=== PATIENT | female | born 1940 | race Two or more races ===

== ENCOUNTER 2017-01-11 09:50 | Inpatient (IN) | payer MEDICARE, BC ==
[~2017-01-11] VITALS: Ht 152.4 cm; Wt 83.9 kg
[~2017-01-11 09:50] MED LIST: AMLO1TAB39 PO; DENO60DI SQ; LORA-259 PO
[2017-01-11] MEDS ORDERED: ONDANSETRON 4 MG/2 ML VIAL IV ONE ×2 (10:00→13:45)
[2017-01-11] MEDS ORDERED: DOCU100C36 PO (10:21)
[2017-01-11] MEDS ORDERED: ZOLP5TAB2 PO (10:21)
[2017-01-11] MEDS ORDERED: LOSA100T15 PO (10:21)
[2017-01-11] MEDS ORDERED: ESCI20TA37 PO (10:21)
[2017-01-11] MEDS ORDERED: TEMA30CA PO (10:21)
[2017-01-11] MEDS ORDERED: SIMV10TA6 PO (10:21)
[2017-01-11] MEDS ORDERED: AMLO10TA2 PO (10:21)
[2017-01-11] MEDS ORDERED: ALLO300T72 PO (10:21)
[2017-01-11] MEDS ORDERED: PRAM0.122 PO (10:21)
[2017-01-11] MEDS ORDERED: [UNRECOGNIZED DRUG - CODE] (10:21)
[2017-01-11] MEDS ORDERED: PANT40TA4 PO (10:21)
[2017-01-11] MEDS ORDERED: IV NORMAL SALINE 1000 ML BAG IV ONE (10:45)
[2017-01-11 11:18] LABS: BASOPHILS % (AUTO) 0.5 % (0.0-2.0); EOSINOPHILS % (AUTO) 0.2 % (0.0-7.0); HEMATOCRIT 27.5 % (37-47); LYMPHOCYTES # (AUTO) 0.1 K/UL (0.8-4.8); LYMPHOCYTES % (AUTO) 3.7 % (20.5-51.5); MEAN CORPUSCULAR HEMOGLOBIN 30.3 UUG (27.0-31.0); MEAN CORPUSCULAR HGB CONC 33 g/dL (32.0-37.0); MEAN CORPUSCULAR VOLUME 92.9 FL (81.0-99.0); MONOCYTES % (AUTO) 0.5 % (0.0-11.0); NEUTROPHILS # (AUTO) 3.4 K/UL (1.8-8.9); NEUTROPHILS % (AUTO) 95.1 % (38.5-71.5); PLATELET COUNT (AUTO) 272 K/UL (150-450); RED BLOOD CELL COUNT(AUTO) 2.96 MIL/UL (4.2-5.4); WHITE BLOOD COUNT (AUTO) 3.5 K/UL (4.0-11.2)
[2017-01-11 11:25] LABS: CARBON DIOXIDE 31 mmol/L (21-32); CHLORIDE 100 mmol/L (98-107); GLUCOSE 102 mg/dL (74-106); POTASSIUM 3.4 mmol/L (3.5-5.1); UREA NITROGEN, BLOOD 16 mg/dL (7-18)
[2017-01-11 11:30] LABS: ALANINE AMINOTRANSFERASE 43 U/L (14-59); ALKALINE PHOSPHATASE 58 U/L (50-136); ASPARTATE AMINOTRANSFERASE 38 U/L (15-37); BILIRUBIN,DIRECT 0.2 mg/dL (0.0-0.2); BILIRUBIN,TOTAL 0.7 mg/dL (0.2-1.0); LIPASE 189 U/L (73-393); TOTAL PROTEIN, SERUM 5.8 g/dL (6.4-8.2)
[2017-01-11 11:43] LABS: *BILIRUBIN,URIN NEGATIVE (NEGATIVE); *BLOOD, URINE Trace-intact (NEGATIVE); *CLARITY,URINE SLIGHTLY CLOUDY (CLEAR); *COLOR,URINE YELLOW (YELLOW); *KETONES,URINE NEGATIVE (NEGATIVE); *PROTEIN,URINE 1+ (NEGATIVE); LEUKOCYTE ESTERASE ,URINE NEGATIVE (NEGATIVE); NITRITE, URINE NEGATIVE (NEGATIVE); PH,URINE 6.5 (5.0-8.0); UGLUCOSE NEGATIVE (NEGATIVE)
[2017-01-11 11:43] LABS: BAND % (MANUAL) 12 % (0-10); LYMPHOCYTES % (MANUAL) 4 % (20-40); METAMYELOCYTES % 1 % (0-1); MONOCYTES % (MANUAL) 1 % (2-10); NEUTROPHILS % (MANUAL) 82 % (42-75)
[2017-01-11 11:59] LABS: BACTERIA,URINE NONE SEEN /HPF (NONE SEEN); SQUAMOUS EPITHELIAL CELL,UR FEW /HPF (NONE SEEN); WBC,URINE 0-3 /HPF (0-3)
[2017-01-11] MEDS ORDERED: IV NORMAL SALINE 500 ML BAG IV ONE (13:45)
[2017-01-11] MEDS ORDERED: MORPHINE SULFATE 2 MG/1 ML DISP.SYRIN IV ONE (13:45)
--- NOTE | 2017-01-11 14:20 | NUR ---
Patient is resting comfortably in bed with eyes closed. PATIENT IS PAIN FREE AT THIS TIME.
--- NOTE | 2017-01-11 15:40 | NUR ---
Patient is now waiting for the admission papers, no acute change in condition seen.
--- NOTE | 2017-01-11 16:06 | NUR ---
Still waiting for admission papers from ER registration staff@this time. Patient's son is now at bedside.
[2017-01-11 16:30] VITALS: BP 124/60
--- NOTE | 2017-01-11 16:45 | NUR ---
RECEIVED FOR ADMISSION 76 YEARS OLD FEMALE FROM ED WITH DX OF CHEMO INDUCED VOMITING AND LEUKEMIA.PLACED INTO BED FIXED AND MADE COMFORTABLE PATIENT IS ALERT AND ORIENTED ASSISTED WITH THE ADMISSION PROCESS EVEN THOUGH SHE GOT IRRITATED A FEW TIMES STATED TI STOP ASKING HER ALL THESE QUESTIONS.TELEMETRY PLACED ORDERED ORIENTED TO ROOM AND FACILITY PROTOCOL.
--- NOTE | 2017-01-11 17:15 | NUR ---
TEMP IS 100.6 AND PATIENT STATED HAS PAIN AT THE BACK OF HER NECK SO I PAGED DR NUÑEZ AND LEFT A MESSAGE WITH MELANIE AND SHE STATED THAT DR NOLAN WILL BE PAGED.
--- NOTE | 2017-01-11 17:15 | NUR ---
DR NOLAN RETURNED CALL WITH NEW ORDERS AND NOTED
[2017-01-11] MEDS ORDERED: MORPHINE SULFATE 2 MG/1 ML DISP.SYRIN IV PRN (17:30)
[2017-01-11] MEDS ORDERED: LEVOFLOXACIN 500 MG/D5W 500 MG in PREMIXED 1 EACH IV ONE (17:45)
[2017-01-11] MEDS: ACETAMINOPHEN 325 MG TABLET PO PRN (17:53)
[2017-01-11] MEDS: ONDANSETRON 4 MG/2 ML VIAL IV PRN (17:53)
[2017-01-11] MEDS ORDERED: LEVOFLOXACIN 500 MG/D5W 500 MG in PREMIXED 1 EACH IV SCH (18:00)
[2017-01-11] MEDS ORDERED: LORAZEPAM 1 MG TABLET PO PRN (19:30)
--- NOTE | 2017-01-11 19:30 | NUR ---
SLEEPING ON BED AT THIS TIME. NO S/SX OF ACUTE DISTRESS NOTED. SAFETY INITIATED. CALL LIGHT WITHIN REACH. WILL CONTINUE TO MONITOR
[2017-01-11 20:00] VITALS: BP 124/67
--- NOTE | 2017-01-11 20:22 | NUR ---
TELE DC'Vianca BY DR. RENE
--- NOTE | 2017-01-11 20:30 | NUR ---
PATIENT NOW AWAKE. NO COMPLAINTS OF PAIN AT THIS TIME. STILL WITH COMPLAINTS OF NAUSEA, OFFERED ICE CHIPS, ALSO REQUESTED FOR ISABELLEO. WILL CONTINUE TO MONITOR
[2017-01-11] MEDS ORDERED: PRAMIPEXOLE DI HCL 0.125 MG PO SCH (21:00)
[2017-01-11] MEDS ORDERED: ZOLPIDEM 5 MG TABLET PO SCH (21:00)
[2017-01-11] MEDS: SIMVASTATIN 10 MG TABLET PO SCH (21:32)
[2017-01-11] MEDS: TEMAZEPAM 30 MG CAPSULE PO SCH (21:33)
[2017-01-11] MEDS: PRAMIPEXOLE 0.25 MG TABLET PO SCH (21:58)
[2017-01-11] MEDS ORDERED: PRAMIPEXOLE 0.25 MG TABLET ONE (22:08)
[2017-01-12 04:30] VITALS: BP 128/65
[2017-01-12] MEDS: ACETAMINOPHEN 325 MG TABLET PO PRN ×4 (04:39→23:20)
--- NOTE | 2017-01-12 06:09 | NUR ---
SLEPT INTERMITTENTLY DURING THE SHIFT. WAS ABLE TO ASSIST AMBULATION TOWARDS RESTROOM WITH FWW BUT PATIENT GOT TIRED EASILY, ASSISTED BACK TO BED. NOTED ALSO LOW GRADE FEVER, TYLENOL ADMINISTERED ORDERED, PROVIDED COOLING MEASURES. STILL WITH COMPLAINTS OF NAUSEA BUT REFUSES ZOFRAN, EXPLAINED WHAT THE MEDICATION IS ABOUT BUT STILL REFUSED. OFFERED ICE CHIPS. KEPT COMFORTABLE AT TIMES. NEEDS ATTENDED.
[2017-01-12] MEDS: PANTOPRAZOLE SODIUM 40 MG TABLET.DR PO SCH (06:42)
[2017-01-12 07:20] LABS: BASOPHILS % (AUTO) 0.4 % (0.0-2.0); EOSINOPHILS % (AUTO) 0.3 % (0.0-7.0); LYMPHOCYTES # (AUTO) 0.2 K/UL (0.8-4.8); LYMPHOCYTES % (AUTO) 5.3 % (20.5-51.5); MEAN CORPUSCULAR HGB CONC 33 g/dL (32.0-37.0); MONOCYTES # (AUTO) 0.1 K/UL (0.1-1.30); MONOCYTES % (AUTO) 3.6 % (0.0-11.0); NEUTROPHILS # (AUTO) 2.7 K/UL (1.8-8.9); NEUTROPHILS % (AUTO) 90.4 % (38.5-71.5)
[2017-01-12 07:29] LABS: WHITE BLOOD COUNT (AUTO) 3.2 K/UL (4.0-11.2)
[2017-01-12 07:30] LABS: HEMATOCRIT 26.3 % (37-47); HEMOGLOBIN 8.6 G/DL (12.0-16.0); MEAN CORPUSCULAR HEMOGLOBIN 30.5 UUG (27.0-31.0); MEAN CORPUSCULAR VOLUME 93.3 FL (81.0-99.0); PLATELET COUNT (AUTO) 246 K/UL (150-450); RED BLOOD CELL COUNT(AUTO) 2.82 MIL/UL (4.2-5.4)
[2017-01-12 08:08] LABS: CARBON DIOXIDE 30 mmol/L (21-32); CHLORIDE 99 mmol/L (98-107); FERRITIN 1870 ng/mL (8-252); GLUCOSE 102 mg/dL (74-106); POTASSIUM 3.2 mmol/L (3.5-5.1); UREA NITROGEN, BLOOD 12 mg/dL (7-18)
[2017-01-12] MEDS: ALLOPURINOL 300 MG TABLET PO SCH (08:36)
[2017-01-12] MEDS: AMLODIPINE 10 MG TABLET PO SCH (09:00)
[2017-01-12] MEDS ORDERED: Medication Not On Formulary EA (Losartan Potassium 100 MG) PO SCH (09:00)
[2017-01-12] MEDS: LOSARTAN POTASSIUM 50 MG TABLET PO SCH (09:00)
[2017-01-12] MEDS ORDERED: POTASSIUM CHLORIDE 20 MEQ TAB.PRT.SR PO ONE (09:15)
[2017-01-12] MEDS ORDERED: MAGNESIUM CITRATE 296 ML BOTTLE PO ONE (09:15)
--- NOTE | 2017-01-12 09:30 | NUR ---
PATIENT SEEN AND EXAMINED BY DR NUÑEZ WITH NEW ORDERS.POTASSIUM LEVEL IS 3.2 AND H/H 8.6/26.3 WITH NEW ORDERS AND NOTED.
[2017-01-12 10:53] LABS: BAND % (MANUAL) 17 % (0-10); BASOPHILS % (MANUAL) 1 % (0-2); EOSINOPHILS % (MANUAL) 1 % (0-8); LYMPHOCYTES % (MANUAL) 4 % (20-40); METAMYELOCYTES % 2 % (0-1); MONOCYTES % (MANUAL) 4 % (2-10); MYELOCYTES % 1 % (0-0); NEUTROPHILS % (MANUAL) 70 % (42-75)
[2017-01-12 11:21] LABS: IRON, SERUM 30 ug/dL (50-175)
[2017-01-12] MEDS: ESCITALOPRAM OXALATE 10 MG TABLET PO SCH (11:27)
[2017-01-12] MEDS: DOCUSATE SODIUM 100 MG CAPSULE PO SCH (11:28)
[2017-01-12] MEDS: MIRALAX 17 GM POWD.PACK PO SCH (11:29)
[2017-01-12] MEDS ORDERED: LORAZEPAM 1 MG TABLET PO PRN (11:30)
[2017-01-12] MEDS ORDERED: MIRALAX 17 GM POWD.PACK ONE (11:34)
[2017-01-12] MEDS ORDERED: POTASSIUM CHLORIDE 20 MEQ TAB.PRT.SR ONE (11:34)
[2017-01-12] MEDS ORDERED: AMLODIPINE 10 MG TABLET ONE (11:34)
[2017-01-12] MEDS ORDERED: DOCUSATE SODIUM 100 MG CAPSULE PO ONE (11:34)
[2017-01-12] MEDS ORDERED: ESCITALOPRAM OXALATE 10 MG TABLET ONE (11:35)
[2017-01-12] MEDS ORDERED: PANTOPRAZOLE SODIUM 40 MG TABLET.DR PO ONE (11:35)
[2017-01-12 11:51] VITALS: BP 102/51
[2017-01-12 15:33] VITALS: BP 124/61
--- NOTE | 2017-01-12 16:11 | NUR ---
TEMPRETURE AT THIS TIME IS 101.3 TYLENOL GIVEN BLANKETS REMOVED PATIENT REFUSED COOLING MEASURES STATED TOO COLD TO ALLOW THAT CALLED DR NUÑEZ BUT DR NOLAN IS BIOCHEMISTRY SPECIALIST LEFT A MESSAGE WITH COLIN AYALA TO CALL BACK.
--- NOTE | 2017-01-12 16:20 | NUR ---
DR NOLAN RETURNED CALL WITH NEW ORDERS AND NOTED.
--- NOTE | 2017-01-12 17:30 | NUR ---
PATIENT HAS POOR VENOUS ACCESS ATTEMPTED BY TWO RNS AND WAS UNABLE TO INSERT CALLED ED AND THEY STATED WILL SEND SOMEONE SOON POSSIBLE.
[2017-01-12] MEDS ORDERED: LEVOFLOXACIN 250MG /D5W 250 MG in PREMIXED 1 EACH IV SCH (18:00)
--- NOTE | 2017-01-12 18:49 | NUR ---
NEW LINE INSERTED AT THIS TIME TO HER RIGHT FOREARM WITH TWO ATTEMPTS BY THE ED NURSE PATIENT IS NOW READY FOR BLOOD TRANSFUSSION IF SHE DOES NOT HAVE A FEVER ENDORSED.IVPB IS IN PROGRESS ORDERED WITH NO ADVERSE OR ALLERGIC REACTIONS AT THIS TIME.
[2017-01-12 20:00] VITALS: BP 101/47
[2017-01-12] MEDS: SIMVASTATIN 10 MG TABLET PO SCH (20:49)
[2017-01-12] MEDS: TEMAZEPAM 30 MG CAPSULE PO SCH (20:54)
[2017-01-12] MEDS: PRAMIPEXOLE 0.25 MG TABLET PO SCH (21:00)
--- NOTE | 2017-01-12 23:30 | NUR ---
PATIENT NOTED TO HAVE TEMPERATURE OF 102.6F. PATIENT IS ALERT, IN NO ACUTE DISTRESS. INFORMED DR. NOLAN, ORDER FOR COOLING MEASURES TAKEN AND CARRIED OUT. WILL CONTINUE TO MONITOR Addendum: 01/13/17 at 0048 by VENKATA BELL RN ADMINISTERED TYLENOL PRN FOR FEVER. WILL CONTINUE TO MONITOR.
--- NOTE | 2017-01-13 | NUR ---
BLOOD TRANSFUSION HELD DUE TO FEVER SPIKE 102.6F MD AWARE OF PATIENT'S FEVER. CONTINUE TO APPLY COOLING MEASURES. WILL CONTINUE TO MONITOR.
--- NOTE | 2017-01-13 01:00 | NUR ---
PT ASLEEP, EASILY AROUSABLE, IN NO ACUTE DISTRESS. TEMPERATURE DOWN TO 99.9F. COOLING MEASURES AND TYLENOL FOR FEVER EFFECTIVE. WILL CONTINUE TO MONITOR.
--- NOTE | 2017-01-13 02:00 | NUR ---
PT STILL HAS FEVER OF 101F. PT IS ASLEEP, EASILY AROUSABLE. CONTINUE WITH COOLING MEASURES.
--- NOTE | 2017-01-13 03:30 | NUR ---
PT WITH TEMP OF 100F. CONTINUE TO MONITOR.
--- NOTE | 2017-01-13 05:25 | NUR ---
PT'S TEMP AT 100F. HELD BLOOD TRANSFUSION PER NURSING JUDGEMENT. WIRE SETTER AWARE.
[2017-01-13] MEDS: ACETAMINOPHEN 325 MG TABLET PO PRN ×3 (05:31→17:20)
[2017-01-13 05:37] VITALS: BP 121/60
--- NOTE | 2017-01-13 06:21 | NUR ---
PT SLEPT WELL, EASILY AROUSABLE, IN NO ACUTE DISTRESS, NO SOB. FEVER MANAGED WITH COOLING MEASURES, ORAL CARE AND PRN MEDS ORDERED. CALL LIGHT WITHIN REACH, BED ALARM ON. WILL CONTINUE TO MONITOR.
[2017-01-13] MEDS: PANTOPRAZOLE SODIUM 40 MG TABLET.DR PO SCH (06:37)
[2017-01-13 06:40] LABS: BASOPHILS % (AUTO) 0.1 % (0.0-2.0); EOSINOPHILS % (AUTO) 0.2 % (0.0-7.0); HEMOGLOBIN 8.7 G/DL (12.0-16.0); LYMPHOCYTES # (AUTO) 0.3 K/UL (0.8-4.8); LYMPHOCYTES % (AUTO) 16.4 % (20.5-51.5); MEAN CORPUSCULAR HEMOGLOBIN 30.1 UUG (27.0-31.0); MEAN CORPUSCULAR HGB CONC 32 g/dL (32.0-37.0); MEAN CORPUSCULAR VOLUME 93.7 FL (81.0-99.0); MONOCYTES # (AUTO) 0.1 K/UL (0.1-1.30); MONOCYTES % (AUTO) 5.4 % (0.0-11.0); NEUTROPHILS # (AUTO) 1.7 K/UL (1.8-8.9); NEUTROPHILS % (AUTO) 77.9 % (38.5-71.5); PLATELET COUNT (AUTO) 221 K/UL (150-450); RED BLOOD CELL COUNT(AUTO) 2.88 MIL/UL (4.2-5.4); WHITE BLOOD COUNT (AUTO) 2.1 K/UL (4.0-11.2)
[2017-01-13 06:42] LABS: CARBON DIOXIDE 32 mmol/L (21-32); CHLORIDE 99 mmol/L (98-107); GLUCOSE 115 mg/dL (74-106); MAGNESIUM 1.3 mg/dL (1.8-2.4); PHOSPHOROUS 2.2 mg/dL (2.5-4.9); POTASSIUM 3.8 mmol/L (3.5-5.1); UREA NITROGEN, BLOOD 14 mg/dL (7-18)
[2017-01-13] MEDS ORDERED: PANTOPRAZOLE SODIUM 40 MG TABLET.DR PO ONE (06:44)
[2017-01-13] MEDS: DOCUSATE SODIUM 100 MG CAPSULE PO SCH (08:50)
[2017-01-13] MEDS: ESCITALOPRAM OXALATE 10 MG TABLET PO SCH (08:50)
[2017-01-13] MEDS: AMLODIPINE 10 MG TABLET PO SCH (08:51)
[2017-01-13] MEDS: LOSARTAN POTASSIUM 50 MG TABLET PO SCH (08:51)
[2017-01-13] MEDS: ALLOPURINOL 300 MG TABLET PO SCH (08:52)
[2017-01-13] MEDS: MIRALAX 17 GM POWD.PACK PO SCH (08:55)
[2017-01-13 09:00] LABS: BAND % (MANUAL) 11 % (0-10); LYMPHOCYTES % (MANUAL) 17 % (20-40); MONOCYTES % (MANUAL) 3 % (2-10); NEUTROPHILS % (MANUAL) 68 % (42-75)
--- NOTE | 2017-01-13 11:25 | NUR ---
TEMPERATURE IS 101.6 TYLENOL GIVEN ORDERED COOLING MEASURES STARTED WITH ICE APPLICATIONS AND EXCESS BLANKETS AND SHEETS REMOVED.WILL CONTINUE TO OBSERVE PATIENT.
[2017-01-13 11:41] VITALS: BP 121/52
--- NOTE | 2017-01-13 12:32 | NUR ---
PATIENT SEEN AND EXAMINED BY DR GLENN PELLETIER WITH ORDER TO OBTAIN ONCOLOGY RECORDS FROM PATIENTS DOCTOR DR FRANKEL THE CONTRACTS SPECIALIST AWARE AND WILL GET RELEASE AUTHORIZATION FROM THE PATIENT.
[2017-01-13] MEDS ORDERED: FILGRASTIM 300 MCG/ML VIAL SUBCUT ONE (12:45)
[2017-01-13] MEDS ORDERED: VANCOMYCIN IV 1 G in PREMIXED 0 EACH IV SCH (12:45)
[2017-01-13] MEDS ORDERED: IMIPENEM/CILASTATIN SODIUM 1,000 MG in IV NORMAL SALINE 250 ML IV SCH (12:45)
[2017-01-13] MEDS: MEROPENEM 1 G in IV NORMAL SALINE 100 ML IV SCH ×2 (14:56→22:01)
[2017-01-13] MEDS ORDERED: NEUTRA PHOS PACKET PO ONE (15:15)
[2017-01-13] MEDS: MAGNESIUM SULFATE/D5W 100 ML IV SCH ×4 (15:42→20:32)
--- NOTE | 2017-01-13 15:52 | NUR ---
Clinical Pharmacy Note: Vancomycin to Dose Subjective: To start vancomycin in this 76 y/o female for indication of "empiric therapy" (temp 101.6) Objective: height 152 cm weight 84 kg BUN 14 Scr 1.0 Wbc 2.1 Temp 101.6 Assessment/plan: One gram one time dose given today at 1245 per MD order, start regimen of 1250mg q22hrs tomorrow (first dose of regimen will be tomorrow 01/14 @1100). Estimated trough of 14.84. Will check renal function tomorrow and dose by level instead if appears to be unstable. If not, will order trough before 4th scheduled dose of regimen (not ordered yet). Will continue to monitor.
[2017-01-13 15:59] VITALS: BP 119/56
[2017-01-13] MEDS ORDERED: TBO-FILGRASTIM 300 MCG/0.5 ML SYRINGE SQ ONE (16:45)
--- NOTE | 2017-01-13 17:30 | NUR ---
CONTINUE WITH COOLING MEASURES AND TYLENOL GIVEN FOR ELEVATED FEVER OF 102.1 CONTINUE WITH ANTIBIOTICS ORDERED WITH NO ADVERSE OR ALLERGIC REACTIONS AT THIS TIME.
--- NOTE | 2017-01-13 18:00 | NUR ---
THIRD BAG OD MAGNESSIUM IS IN PROGRESS AT THIS TIME WILL ENDORSE THE FOURTH BAG TO THE ONCOMING SHIFT.
--- NOTE | 2017-01-13 19:10 | NUR ---
PATIENT ALERT ORIENTED, NO SOB NO CHEST PAIN , PATIENT CONT ON COOLING MEASURE DUE TO EPISODES OF ELEVATED TEMP, AFEBRILE AT THIS TIME, NO COMPLAIN OF PAIN, CONT TO MONITOR.
[2017-01-13 20:18] VITALS: BP 101/46
[2017-01-13] MEDS: TEMAZEPAM 30 MG CAPSULE PO SCH (21:00)
[2017-01-13] MEDS: PRAMIPEXOLE 0.25 MG TABLET PO SCH (21:00)
[2017-01-13] MEDS: SIMVASTATIN 10 MG TABLET PO SCH (21:56)
[2017-01-14] MEDS: ACETAMINOPHEN 325 MG TABLET PO PRN ×2 (03:49→15:13)
[2017-01-14 05:00] VITALS: BP 114/55
--- NOTE | 2017-01-14 05:06 | NUR ---
PATIENT ALERT ORIENTED, SLEPT MOST OF THE NIGHT, NO SOB NO CHEST PAIN NOTED. AFEBRILE MOST OF THE NIGHT, REQUEST FOR TYLENOL 650MG PO FOR MILD GENERALIZED BODY PAIN. CONT ON ABX.
[2017-01-14] MEDS: MEROPENEM 1 G in IV NORMAL SALINE 100 ML IV SCH ×3 (05:17→21:31)
[2017-01-14] MEDS: PANTOPRAZOLE SODIUM 40 MG TABLET.DR PO SCH (06:14)
[2017-01-14 07:04] LABS: CHLORIDE 98 mmol/L (98-107); POTASSIUM 3.6 mmol/L (3.5-5.1)
[2017-01-14 07:05] LABS: CARBON DIOXIDE 33 mmol/L (21-32); CREATININE 1.1 mg/dL (0.6-1.3); GLUCOSE 119 mg/dL (74-106); MAGNESIUM 2.5 mg/dL (1.8-2.4); PHOSPHOROUS 2.4 mg/dL (2.5-4.9); UREA NITROGEN, BLOOD 14 mg/dL (7-18)
--- NOTE | 2017-01-14 08:10 | NUR ---
PATIENT RECEIVED IN ROOM ALERT AWAKE AND ORIENTED. DENIED PAIN. DENIED N/V AT THIS TIME. AFEBRILE. VSS.
[2017-01-14] MEDS: DOCUSATE SODIUM 100 MG CAPSULE PO SCH (08:11)
[2017-01-14] MEDS: ALLOPURINOL 300 MG TABLET PO SCH (08:11)
[2017-01-14] MEDS: LOSARTAN POTASSIUM 50 MG TABLET PO SCH (08:11)
[2017-01-14] MEDS: ESCITALOPRAM OXALATE 10 MG TABLET PO SCH (08:11)
[2017-01-14] MEDS: MIRALAX 17 GM POWD.PACK PO SCH (08:11)
[2017-01-14] MEDS: AMLODIPINE 10 MG TABLET PO SCH (08:11)
[2017-01-14] MEDS: VANCOMYCIN IV 1,250 MG in IV DEXTROSE 5% 500 ML IV SCH (11:39)
[2017-01-14 11:56] VITALS: BP 93/48
--- NOTE | 2017-01-14 13:00 | NUR ---
RECEIVED PATIENT FROM DAY NURSE, PATIENT IN BED, SAFETY CHECK, SIDE RAILS UP X2, BED ALARM ON AND BED IN LOW POSITION.
--- NOTE | 2017-01-14 14:30 | NUR ---
RECEIVED ORDER FOR BLOOD 1 UNIT, PATIENT'S TEMPERATURE WAS 99.4F, THEN 100.9, AND 101.4 ON THREE DIFFERENT MEASURES. BLOOD HELD AND TYLENOL ADMINISTERED. BLOOD RETURNED TO BLOOD BANK.
[2017-01-14] MEDS: IV NS 1000 ML 1,000 ML IV PRN (15:17)
--- NOTE | 2017-01-14 15:50 | NUR ---
Clinical Pharmacy Note: Vancomycin to Dose Subjective: To continue vancomycin in this 76 y/o female for indication of "empiric therapy" (leukopenia, infection of UKO) Objective: height 152 cm weight 84 kg BUN 14 Scr 1.1 Wbc 2.1(01/13) Temp 98.5 Assessment/plan: Will continue Vancomycin 1250mg IV q22hrs for now (first dose of regimen given today @1100). Estimated trough of 14.84. Will order trough before 4th scheduled dose of regimen (not ordered yet). Will continue to monitor.
[2017-01-14] MEDS ORDERED: NEUTRA PHOS PACKET PO ONE (16:00)
[2017-01-14 16:12] VITALS: BP 92/51
--- NOTE | 2017-01-14 18:29 | NUR ---
PATIENT IS IN BED, SAFETY CHECK, BED IN LOW POSITION, SIDE RAILS UP X2, BED ALARM ON.
[2017-01-14 20:00] VITALS: BP 92/38
[2017-01-14] MEDS: TEMAZEPAM 30 MG CAPSULE PO SCH ×2 (21:00→21:30)
[2017-01-14] MEDS: PRAMIPEXOLE 0.25 MG TABLET PO SCH (21:29)
[2017-01-14] MEDS: SIMVASTATIN 10 MG TABLET PO SCH (21:29)
[2017-01-14] MEDS ORDERED: TBO-FILGRASTIM 300 MCG/0.5 ML SYRINGE SQ SCH (21:30)
[2017-01-14 21:50] LABS: EOSINOPHILS % (AUTO) 0.8 % (0.0-7.0); LYMPHOCYTES # (AUTO) 0.5 K/UL (0.8-4.8); MEAN CORPUSCULAR HEMOGLOBIN 31.3 UUG (27.0-31.0); MEAN CORPUSCULAR HGB CONC 34 g/dL (32.0-37.0); MEAN CORPUSCULAR VOLUME 93.3 FL (81.0-99.0); MONOCYTES # (AUTO) 0.2 K/UL (0.1-1.30); NEUTROPHILS # (AUTO) 2.6 K/UL (1.8-8.9); NEUTROPHILS % (AUTO) 78.2 % (38.5-71.5); PLATELET COUNT (AUTO) 182 K/UL (150-450); RED BLOOD CELL COUNT(AUTO) 2.57 MIL/UL (4.2-5.4); WHITE BLOOD COUNT (AUTO) 3.3 K/UL (4.0-11.2)
[2017-01-14 22:04] LABS: MONOCYTES % (MANUAL) 7 % (2-10); NEUTROPHILS % (MANUAL) 80 % (42-75)
[2017-01-14 22:06] LABS: BAND % (MANUAL) 3 % (0-10); LYMPHOCYTES % (MANUAL) 10 % (20-40)
--- NOTE | 2017-01-14 22:49 | NUR ---
GRANIX 300MCG NOT ADMINISTERED, MED NOT AVAILABLE, OK'D WITH DR. SESAY.
[2017-01-15] VITALS (18 sets, daily range): BP systolic 93–124; BP diastolic 48–66
[2017-01-15] MEDS: IV NS 1000 ML 1,000 ML IV PRN (04:08)
[2017-01-15] MEDS: ACETAMINOPHEN 325 MG TABLET PO PRN (04:15)
--- NOTE | 2017-01-15 04:17 | NUR ---
1 UNIT OF BLOOD TRANSFUSED ORDERED. NO A/E NOTED. V/S CHECKED AND RECORDED.
[2017-01-15] MEDS: MEROPENEM 1 G in IV NORMAL SALINE 100 ML IV SCH ×3 (05:12→21:23)
[2017-01-15] MEDS: PANTOPRAZOLE SODIUM 40 MG TABLET.DR PO SCH (06:16)
[2017-01-15] MEDS: ONDANSETRON 4 MG/2 ML VIAL IV PRN ×4 (06:16→21:55)
--- NOTE | 2017-01-15 07:20 | NUR ---
2ND UNIT OF BLOOD INFUSING. NO A/E NOTED.
[2017-01-15] MEDS: AMLODIPINE 10 MG TABLET PO SCH (09:00)
[2017-01-15] MEDS: MIRALAX 17 GM POWD.PACK PO SCH (09:00)
[2017-01-15] MEDS: DOCUSATE SODIUM 100 MG CAPSULE PO SCH (09:00)
[2017-01-15] MEDS: LOSARTAN POTASSIUM 50 MG TABLET PO SCH (09:00)
[2017-01-15] MEDS: VANCOMYCIN IV 1,250 MG in IV DEXTROSE 5% 500 ML IV SCH (09:08)
[2017-01-15] MEDS: ALLOPURINOL 300 MG TABLET PO SCH (09:09)
[2017-01-15] MEDS: ESCITALOPRAM OXALATE 10 MG TABLET PO SCH (09:11)
[2017-01-15 09:22] LABS: BASOPHILS % (AUTO) 0.4 % (0.0-2.0); EOSINOPHILS % (AUTO) 0.9 % (0.0-7.0); HEMATOCRIT 30.8 % (37-47); HEMOGLOBIN 10.7 G/DL (12.0-16.0); LYMPHOCYTES # (AUTO) 0.5 K/UL (0.8-4.8); LYMPHOCYTES % (AUTO) 13.4 % (20.5-51.5); MEAN CORPUSCULAR HEMOGLOBIN 31.6 UUG (27.0-31.0); MEAN CORPUSCULAR HGB CONC 35 g/dL (32.0-37.0); MEAN CORPUSCULAR VOLUME 91.2 FL (81.0-99.0); MONOCYTES # (AUTO) 0.2 K/UL (0.1-1.30); MONOCYTES % (AUTO) 5.6 % (0.0-11.0); NEUTROPHILS % (AUTO) 79.7 % (38.5-71.5); PLATELET COUNT (AUTO) 170 K/UL (150-450); RED BLOOD CELL COUNT(AUTO) 3.38 MIL/UL (4.2-5.4); WHITE BLOOD COUNT (AUTO) 3.8 K/UL (4.0-11.2)
[2017-01-15 09:33] LABS: CARBON DIOXIDE 30 mmol/L (21-32); CHLORIDE 102 mmol/L (98-107); CREATININE 0.9 mg/dL (0.6-1.3); GLUCOSE 105 mg/dL (74-106); PHOSPHOROUS 2.4 mg/dL (2.5-4.9); POTASSIUM 3.6 mmol/L (3.5-5.1); UREA NITROGEN, BLOOD 15 mg/dL (7-18)
[2017-01-15 09:39] LABS: BAND % (MANUAL) 20 % (0-10); EOSINOPHILS % (MANUAL) 1 % (0-8); LYMPHOCYTES % (MANUAL) 14 % (20-40); MONOCYTES % (MANUAL) 9 % (2-10); NEUTROPHILS % (MANUAL) 56 % (42-75)
[2017-01-15] MEDS: TBO-FILGRASTIM 300 MCG/0.5 ML SYRINGE SQ SCH (11:18)
--- NOTE | 2017-01-15 15:21 | NUR ---
Clinical Pharmacy Note: Vancomycin to Dose Subjective: To continue vancomycin in this 76 y/o female for indication of "empiric therapy" (leukopenia, infection of UKO) Objective: height 152 cm weight 84 kg BUN 15 Scr 0.9 Wbc 3.8 Temp 98.6 Assessment/plan: Will continue Vancomycin 1250mg IV q22hrs for now (second dose of regimen given today @900). Estimated trough of 14.84. Will order trough before 4th scheduled dose of regimen (not ordered yet). Will continue to monitor.
[2017-01-15] MEDS ORDERED: NEUTRA PHOS PACKET PO ONE (16:15)
--- NOTE | 2017-01-15 18:00 | NUR ---
pt has been afebrile throughout shift. Pt was given x1 zofran earlier. Pt is in no acute distress.
[2017-01-15] MEDS: PRAMIPEXOLE 0.25 MG TABLET PO SCH ×2 (21:00→21:22)
[2017-01-15] MEDS: TEMAZEPAM 30 MG CAPSULE PO SCH (21:22)
[2017-01-15] MEDS: SIMVASTATIN 10 MG TABLET PO SCH (21:23)
[2017-01-15 23:18] LABS: *OCCULT BLOOD STOOL POSITIVE (NEGATIVE)
[2017-01-16] MEDS: IV NS 1000 ML 1,000 ML IV PRN ×2 (02:54→18:44)
[2017-01-16 05:00] VITALS: BP 99/50
[2017-01-16] MEDS: MEROPENEM 1 G in IV NORMAL SALINE 100 ML IV SCH ×3 (05:19→21:00)
--- NOTE | 2017-01-16 05:26 | NUR ---
PT SLEPT WELL THROUGH THE NIGHT AND WAS EASILY AWOKEN, PT DENIED HAVING ANY PAIN OR DIFFICULTY BREATHING, PT DID COMPLAIN THAT SHE KEEPS FEELING FATIGUED AND SLEEPY. PT ALSO COMPLAINED OF NAUSEA DURING THE NIGHT, ZOFRAN WAS GIVEN AND WAS EFFECTIVE, PT WAS ABLE TO EAT 100% OF YOGURT. ALL NEEDS MET, SAFETY MEASURES ARE IN PLACE, CALL LIGHT WITHIN REACH, BED ALARM IS ON.
[2017-01-16] MEDS: PANTOPRAZOLE SODIUM 40 MG TABLET.DR PO SCH (06:00)
[2017-01-16] MEDS: VANCOMYCIN IV 1,250 MG in IV DEXTROSE 5% 500 ML IV SCH (06:00)
--- NOTE | 2017-01-16 07:25 | NUR ---
RECEIVED REPORT FROM WASTEWATER SUPERINTENDENT, PATIENT IN BED SLEEPING, SIDE RAILS UP X2, BED IN LOW POSITION.
[2017-01-16 08:06] LABS: BASOPHILS % (AUTO) 0.8 % (0.0-2.0); EOSINOPHILS # (AUTO) 0.1 K/uL (0.0-0.7); EOSINOPHILS % (AUTO) 1.1 % (0.0-7.0); HEMATOCRIT 29.5 % (37-47); HEMOGLOBIN 9.9 G/DL (12.0-16.0); LYMPHOCYTES # (AUTO) 0.4 K/UL (0.8-4.8); LYMPHOCYTES % (AUTO) 6.8 % (20.5-51.5); MEAN CORPUSCULAR HEMOGLOBIN 30.9 UUG (27.0-31.0); MEAN CORPUSCULAR HGB CONC 34 g/dL (32.0-37.0); MEAN CORPUSCULAR VOLUME 91.5 FL (81.0-99.0); MONOCYTES # (AUTO) 0.5 K/UL (0.1-1.30); MONOCYTES % (AUTO) 8.9 % (0.0-11.0); NEUTROPHILS # (AUTO) 4.4 K/UL (1.8-8.9); NEUTROPHILS % (AUTO) 82.4 % (38.5-71.5); PLATELET COUNT (AUTO) 149 K/UL (150-450); RED BLOOD CELL COUNT(AUTO) 3.22 MIL/UL (4.2-5.4); WHITE BLOOD COUNT (AUTO) 5.4 K/UL (4.0-11.2)
[2017-01-16 08:21] LABS: ALANINE AMINOTRANSFERASE 49 U/L (14-59); ALKALINE PHOSPHATASE 84 U/L (50-136); ASPARTATE AMINOTRANSFERASE 51 U/L (15-37); BILIRUBIN,TOTAL 0.4 mg/dL (0.2-1.0); CARBON DIOXIDE 30 mmol/L (21-32); CHLORIDE 104 mmol/L (98-107); CREATININE 0.9 mg/dL (0.6-1.3); GLUCOSE 146 mg/dL (74-106); MAGNESIUM 1.6 mg/dL (1.8-2.4); PHOSPHOROUS 1.5 mg/dL (2.5-4.9); POTASSIUM 3.5 mmol/L (3.5-5.1); TOTAL PROTEIN, SERUM 5.1 g/dL (6.4-8.2); UREA NITROGEN, BLOOD 12 mg/dL (7-18)
[2017-01-16] MEDS: DOCUSATE SODIUM 100 MG CAPSULE PO SCH (09:00)
[2017-01-16] MEDS: MIRALAX 17 GM POWD.PACK PO SCH (09:00)
[2017-01-16] MEDS: ALLOPURINOL 300 MG TABLET PO SCH (09:39)
[2017-01-16] MEDS: ESCITALOPRAM OXALATE 10 MG TABLET PO SCH (09:39)
[2017-01-16] MEDS: AMLODIPINE 10 MG TABLET PO SCH (09:40)
[2017-01-16] MEDS: TBO-FILGRASTIM 300 MCG/0.5 ML SYRINGE SQ SCH (10:00)
[2017-01-16 10:11] LABS: BAND % (MANUAL) 11 % (0-10); EOSINOPHILS % (MANUAL) 2 % (0-8); LYMPHOCYTES % (MANUAL) 15 % (20-40); MONOCYTES % (MANUAL) 9 % (2-10); NEUTROPHILS % (MANUAL) 63 % (42-75)
[2017-01-16] MEDS ORDERED: MAGNESIUM OXIDE 400 MG TABLET PO ONE (10:15)
[2017-01-16] MEDS: ONDANSETRON 4 MG/2 ML VIAL IV PRN (11:18)
--- NOTE | 2017-01-16 11:30 | NUR ---
PATIENT BECAME ANXIOUS AND NASEATED WHEN PHYSICAL THERAPY WAS ABOUT TO ASSESS PATIENT, PATIENT BECAME SHORT OF BREATH AND WAS NOT ABLE TO CONTINUE. VITALS WNL, OXYGEN ADMINISTERED, AND PRN MEDICATION ADMINISTERED.
[2017-01-16 12:14] VITALS: BP 109/62
--- NOTE | 2017-01-16 12:17 | NUR ---
Clinical Pharmacy Note: Vancomycin to Dose Subjective: To continue vancomycin in this 76 y/o female for indication of "empiric therapy" (leukopenia, infection of UKO) Objective: height 152 cm weight 84 kg BUN 12 Scr 0.9 Wbc 5.4 Temp 98.6 Assessment/plan: Will continue Vancomycin 1250mg IV q22hrs for now (Third dose of regimen was given today @0600). Plan to draw vanco trough level before 4th dose (ordered for 01/17 at 0430-RN has been informed to hold 0500 dose if vanco trough level is above 20 mcg/ml). Will continue to monitor.
[2017-01-16 16:32] VITALS: BP 107/56
[2017-01-16] MEDS ORDERED: NEUTRA PHOS PACKET PO ONE (17:15)
--- NOTE | 2017-01-16 18:33 | NUR ---
PATIENT IS IN BED, NO EVIDENCE OF DISTRESS NOTED. BED IN LOW POSITION, SIDE RAILS UP X2, BED ALARM ON.
--- NOTE | 2017-01-16 19:45 | NUR ---
PATIENT RECEIVED LAYING IN BED, BREATHING UNLABORED. PT IS ON 2 LITERS VIA NASAL CANULA. NO ACUTE DISTRESS NOTED. PT ON IV FLUIDS, TOLERATING WELL. BED IN LOW AND LOCKED POSITION, CALL LIGHT WITHIN REACH.
[2017-01-16 20:00] VITALS: BP 99/54
[2017-01-16] MEDS: SIMVASTATIN 10 MG TABLET PO SCH (20:42)
[2017-01-16] MEDS: PRAMIPEXOLE 0.25 MG TABLET PO SCH (20:43)
[2017-01-16] MEDS: TEMAZEPAM 30 MG CAPSULE PO SCH (20:44)
--- NOTE | 2017-01-16 23:00 | NUR ---
PT REFUSED RESTORIL AND MERIPEX AT BEDTIME "STATED I DON'T NEED IT", DESPITE EDUCATION. WILL NOTIFY .
--- NOTE | 2017-01-17 03:00 | NUR ---
PT SLEEPING WELL AT THIS TIME, NO ACUTE DISTRESS NOTED.
--- NOTE | 2017-01-17 04:30 | NUR ---
PT REFUSED VANCO TROUGH TO BE DRAWN, STATED "PLEASE COME BACK 1 HOURS" DESPITE EDUCATION. NOISE TESTER WILL COME BACK X1 HOUR.
[2017-01-17 05:00] VITALS: BP 118/63
[2017-01-17] MEDS: VANCOMYCIN IV 1,250 MG in IV DEXTROSE 5% 500 ML IV SCH ×2 (05:00→09:26)
--- NOTE | 2017-01-17 06:00 | NUR ---
PT COMPLIANT WITH BLOOD DRAW THIS AM FOR VANCO TROUGH. AWAITING RESULTS TO ADMINISTERS VANCOMYCIN MEDICATION.
[2017-01-17] MEDS ORDERED: MEROPENEM 1 G VIAL IV ONE (06:20)
[2017-01-17] MEDS: PANTOPRAZOLE SODIUM 40 MG TABLET.DR PO SCH (06:33)
[2017-01-17] MEDS: MEROPENEM 1 G in IV NORMAL SALINE 100 ML IV SCH ×2 (06:33→14:00)
--- NOTE | 2017-01-17 07:30 | NUR ---
RECEIVED REPORT FROM FINISHER FIBERGLASS BOAT PARTS NURSE, PATIENT IN BED, SIDE RAILS UP X2, BED IN LOW POSITION, BED ALARM ON. NO APPARENT DISTRESS NOTED.
[2017-01-17 07:32] LABS: BASOPHILS % (AUTO) 0.4 % (0.0-2.0); EOSINOPHILS # (AUTO) 0.1 K/uL (0.0-0.7); EOSINOPHILS % (AUTO) 0.7 % (0.0-7.0); HEMATOCRIT 29.7 % (37-47); HEMOGLOBIN 9.8 G/DL (12.0-16.0); LYMPHOCYTES # (AUTO) 0.6 K/UL (0.8-4.8); LYMPHOCYTES % (AUTO) 8.1 % (20.5-51.5); MEAN CORPUSCULAR HEMOGLOBIN 30.3 UUG (27.0-31.0); MEAN CORPUSCULAR HGB CONC 33 g/dL (32.0-37.0); MEAN CORPUSCULAR VOLUME 91.9 FL (81.0-99.0); MONOCYTES # (AUTO) 0.4 K/UL (0.1-1.30); MONOCYTES % (AUTO) 5.9 % (0.0-11.0); NEUTROPHILS # (AUTO) 6.3 K/UL (1.8-8.9); NEUTROPHILS % (AUTO) 84.9 % (38.5-71.5); PLATELET COUNT (AUTO) 142 K/UL (150-450); RED BLOOD CELL COUNT(AUTO) 3.23 MIL/UL (4.2-5.4)
[2017-01-17 07:40] LABS: ALANINE AMINOTRANSFERASE 58 U/L (14-59); ALKALINE PHOSPHATASE 87 U/L (50-136); ASPARTATE AMINOTRANSFERASE 50 U/L (15-37); BILIRUBIN,TOTAL 0.3 mg/dL (0.2-1.0); CARBON DIOXIDE 31 mmol/L (21-32); CHLORIDE 106 mmol/L (98-107); CREATININE 0.8 mg/dL (0.6-1.3); GLUCOSE 90 mg/dL (74-106); MAGNESIUM 1.5 mg/dL (1.8-2.4); PHOSPHOROUS 1.7 mg/dL (2.5-4.9); POTASSIUM 3.9 mmol/L (3.5-5.1); UREA NITROGEN, BLOOD 11 mg/dL (7-18)
[2017-01-17 07:42] LABS: WHITE BLOOD COUNT (AUTO) 7.4 K/UL (4.0-11.2)
[2017-01-17] MEDS: IV NS 1000 ML 1,000 ML IV PRN (07:46)
[2017-01-17] MEDS ORDERED: MERO1VIA IV (08:23)
[2017-01-17] MEDS: MIRALAX 17 GM POWD.PACK PO SCH ×2 (09:00→09:11)
[2017-01-17] MEDS: DOCUSATE SODIUM 100 MG CAPSULE PO SCH (09:11)
[2017-01-17] MEDS: ESCITALOPRAM OXALATE 10 MG TABLET PO SCH (09:11)
[2017-01-17] MEDS: ALLOPURINOL 300 MG TABLET PO SCH (09:12)
[2017-01-17] MEDS: AMLODIPINE 10 MG TABLET PO SCH (09:12)
[2017-01-17] MEDS: ONDANSETRON 4 MG/2 ML VIAL IV PRN (10:51)
[2017-01-17] MEDS: TBO-FILGRASTIM 300 MCG/0.5 ML SYRINGE SQ SCH (10:51)
[2017-01-17 11:51] VITALS: BP 125/56
--- NOTE | 2017-01-17 12:00 | NUR ---
Patient has had nausea, intermittently throughout the day. Gave patient zofran, and patient evaluated by PT. Patient tolerated well, but still had a need for oxygen as her saturation dropped to 88%
[2017-01-17 12:44] LABS: BAND % (MANUAL) 22 % (0-10); EOSINOPHILS % (MANUAL) 1 % (0-8); LYMPHOCYTES % (MANUAL) 13 % (20-40); METAMYELOCYTES % 3 % (0-1); MONOCYTES % (MANUAL) 13 % (2-10); NEUTROPHILS % (MANUAL) 48 % (42-75)
[2017-01-17] MEDS ORDERED: MAGNESIUM OXIDE 400 MG TABLET PO ONE (13:15)
--- NOTE | 2017-01-17 14:10 | NUR ---
Patient was discharged to ARU, patient had some mild nausea when transported to ARU, but tolerated the transfer well.
[2017-01-17 15:30] VITALS: BP 96/47
--- NOTE | 2017-01-17 15:30 | NUR ---
Clinical Pharmacy Note: Vancomycin to Dose Subjective: To continue vancomycin in this 76 y/o female for indication of "empiric therapy" (leukopenia, infection of UKO) Objective: height 152 cm weight 84 kg BUN 11 Scr 0.8 Wbc 7.4 Temp 98.4 Vancomycin trough 8.4( checked at 0550 instead of 0430) Assessment/plan: Vancomycin trough was delayed and subsequent 4th dose was given at 0926 instead of 0500. Will continue Vancomycin 1250mg IV q22hrs for now and repeat trough by 6th dose(not ordered yet). Will monitor renal function closely to adjust the dose if needed. Will follow daily.
[2017-01-17] MEDS ORDERED: ACET-73 PO (22:57)
[2017-01-17] MEDS ORDERED: SIMV10TA6 PO (22:57)
[2017-01-17] MEDS ORDERED: ZOLP5TAB8 PO (22:57)
== END 2017-01-17 16:00 | DRG 202 ==
LOC: ER 09:50 → TELE 16:15 → MED 20:29
PROVIDERS: ADMIT Internal Medicine Nephrology; ATTEND Internal Medicine Nephrology
PROC: 30233N1 Transfusion of Nonautologous Red Blood Cells into Peripheral Vein, Percutaneous Approach (ICD-10-PCS; principal; 2017-01-15)
DX: J40 Bronchitis, not specified as acute or chronic (principal); C91.10 Chronic lymphocytic leukemia of B-cell type not having achieved remission; N39.0 Urinary tract infection, site not specified; J06.9 Acute upper respiratory infection, unspecified; E87.6 Hypokalemia; Z79.899 Other long term (current) drug therapy; Z85.3 Personal history of malignant neoplasm of breast; D64.9 Anemia, unspecified; R53.1 Weakness; K59.00 Constipation, unspecified; D72.819 Decreased white blood cell count, unspecified; R19.5 Other fecal abnormalities
CPT/HCPCS: 36415; 70030-TC; 71010; 71275; 83550; 83690; 83735; 84100; 84550; 85025; 85730; 86850; 86900; 86901; 86920; 87040; 93005; 97110; 97116; 97161; 97165; 97530; A4663; J1447; J1956; J2185; J2270; J2405; J3370; J3475; J3490; J7030; J7040; J7050; J7060; P9016-BL; P9021

== ENCOUNTER 2017-01-17 17:31 | Inpatient (IN) | payer MEDICARE, BC ==
[~2017-01-17 17:31] MED LIST changes: +ALLO300T72 PO; +AMLO10TA2 PO; -AMLO1TAB39 PO; -DENO60DI SQ; +DOCU100C36 PO; +ESCI20TA37 PO; +LOSA100T15 PO; +MERO1VIA IV; +PANT40TA4 PO; +PRAM0.122 PO; +SIMV10TA6 PO; +TEMA30CA PO; +ZOLP5TAB2 PO
[2017-01-17] MEDS ORDERED: Z GUARD REMEDY PASTE 57 GM TUBE TOP PRN (17:45)
[2017-01-17] MEDS: NEUTRA PHOS PACKET PO SCH (17:45)
--- NOTE | 2017-01-17 18:10 | NUR ---
patient was admitted this evening from Med/Surg. Patient refused to answers questions for admission. Stated shes tired and done and she cant think right to answer questions. PAtient refused MRSA swab and dinner as well.
[2017-01-17 18:16] VITALS: BP 103/51
--- NOTE | 2017-01-17 19:30 | NUR ---
RECEIVED PATIENT AWAKE, ALERT, AND ORIENTED X4. PRIMARY LANGUAGE IS FARSI BUT UNDERSTANDS JAPANESE WELL ENOUGH TO ANSWER QUESTIONS ASKED. ADMISSION INTERVIEW DONE WITH SON/ SOLO OVER THE PHONE PATIENT IS C/O BEING WITH GENERALIZED WEAKNESS AND TIREDNESS.ORIENTED TO ROOM, CALL LIGHT,TV, AND ARU ROUTINE.INSTRUCTED TO CALL RN FOR ANY NEEDS OR CONCERNS SHE MAY HAVE. VERBALIZES GOOD UNDERSTANDING OF THIS.CALL LIGHT WITHIN REACH AAT. BED ALARM ON.DR CARDOSO HERE TO EVALUATE AND ASSESS PATIENT.SCD'S PLACED FOR VTE PROPHYLAXIS.
[2017-01-17 20:00] VITALS: BP 113/44
--- NOTE | 2017-01-17 21:00 | NUR ---
PAGED DR ERIC TO COMPLETE MED RECON
[2017-01-17] MEDS ORDERED: ACET-73 PO (22:57)
[2017-01-17] MEDS ORDERED: SIMV10TA6 PO (22:57)
[2017-01-17] MEDS ORDERED: ZOLP5TAB8 PO (22:57)
[2017-01-17] MEDS ORDERED: ZOLPIDEM 5 MG TABLET PO PRN (23:00)
--- NOTE | 2017-01-17 23:00 | NUR ---
MED RECON COMPLETED
[2017-01-17] MEDS: ACETAMINOPHEN 325 MG TABLET PO PRN (23:03)
[2017-01-17] MEDS ORDERED: ACETAMINOPHEN 325 MG TABLET ONE (23:12)
[2017-01-18] MEDS ORDERED: LORAZEPAM 1 MG TABLET PO PRN ×2 (00:30→08:30)
[2017-01-18] MEDS ORDERED: TEMAZEPAM 30 MG CAPSULE PO PRN ×2 (00:30→21:00)
[2017-01-18] MEDS ORDERED: MEROPENEM 1 G in IV NORMAL SALINE 100 ML IV SCH (06:00)
--- NOTE | 2017-01-18 06:00 | NUR ---
SLEPT WELL THROUGH THE NIGHT WITHOUT C/O PAIN, NAUSEA, OR VOMITING. TAKING LIQUIDS WITHOUT EMESIS TONIGHT. INCONTINENT OF URINE IN DIAPERS. SKIN INTEGRITY MAINTAINED. KEPT CLEAN AND DRY. SALINE LOCK INTACT AND PATENT TO RIGHT WRIST. MERREM IVPB INFUSING WELL WITHOUT SIGNS OF INFILTRATION AND/ OR PHLEBITIS. NO OVERT SIGNS OF ANY ADVERSE SIDE EFFECTS NOTED EITHER. APPEARS COMFORTABLE AT PRESENT. IN NO ACUTE DISTRESS. CALL LIGHT WITHIN REACH AAT.
[2017-01-18] MEDS: PANTOPRAZOLE SODIUM 40 MG TABLET.DR PO SCH (06:13)
[2017-01-18] MEDS ORDERED: PANTOPRAZOLE SODIUM 40 MG TABLET.DR PO ONE (06:17)
[2017-01-18 08:00] VITALS: BP 121/58
[2017-01-18 08:22] LABS: MAGNESIUM 1.6 mg/dL (1.8-2.4); PHOSPHOROUS 1.8 mg/dL (2.5-4.9)
[2017-01-18 08:24] LABS: ALANINE AMINOTRANSFERASE 47 U/L (14-59); ALKALINE PHOSPHATASE 98 U/L (50-136); ASPARTATE AMINOTRANSFERASE 42 U/L (15-37); BILIRUBIN,TOTAL 0.4 mg/dL (0.2-1.0); CARBON DIOXIDE 33 mmol/L (21-32); CHLORIDE 105 mmol/L (98-107); CREATININE 0.8 mg/dL (0.6-1.3); GLUCOSE 89 mg/dL (74-106); POTASSIUM 3.9 mmol/L (3.5-5.1); TOTAL PROTEIN, SERUM 5.2 g/dL (6.4-8.2); UREA NITROGEN, BLOOD 9 mg/dL (7-18)
[2017-01-18 08:25] LABS: BASOPHILS % (AUTO) 0.1 % (0.0-2.0); EOSINOPHILS # (AUTO) 0.1 K/uL (0.0-0.7); EOSINOPHILS % (AUTO) 0.4 % (0.0-7.0); HEMATOCRIT 30.1 % (37-47); HEMOGLOBIN 10.3 G/DL (12.0-16.0); LYMPHOCYTES # (AUTO) 0.7 K/UL (0.8-4.8); LYMPHOCYTES % (AUTO) 5.2 % (20.5-51.5); MEAN CORPUSCULAR HEMOGLOBIN 31.6 UUG (27.0-31.0); MEAN CORPUSCULAR HGB CONC 34 g/dL (32.0-37.0); MEAN CORPUSCULAR VOLUME 92.1 FL (81.0-99.0); MONOCYTES # (AUTO) 0.4 K/UL (0.1-1.30); MONOCYTES % (AUTO) 2.9 % (0.0-11.0); NEUTROPHILS # (AUTO) 12.5 K/UL (1.8-8.9); NEUTROPHILS % (AUTO) 91.4 % (38.5-71.5); PLATELET COUNT (AUTO) 152 K/UL (150-450); RED BLOOD CELL COUNT(AUTO) 3.27 MIL/UL (4.2-5.4)
[2017-01-18] MEDS ORDERED: ACETAMINOPHEN ES 500 MG TABLET PO PRN (08:30)
[2017-01-18] MEDS ORDERED: ZOLPIDEM 5 MG TABLET PO PRN (08:30)
[2017-01-18 08:33] LABS: WHITE BLOOD COUNT (AUTO) 13.7 K/UL (4.0-11.2)
[2017-01-18] MEDS ORDERED: PANTOPRAZOLE SODIUM 40 MG TABLET.DR PO SCH (09:00)
[2017-01-18] MEDS ORDERED: ESCITALOPRAM OXALATE 10 MG TABLET NG SCH (09:00)
[2017-01-18] MEDS ORDERED: LOSARTAN POTASSIUM 50 MG TABLET PO SCH (09:00)
[2017-01-18] MEDS ORDERED: DOCUSATE SODIUM 100 MG CAPSULE PO SCH (09:00)
[2017-01-18] MEDS ORDERED: ESCITALOPRAM OXALATE 10 MG TABLET PO SCH (09:00)
[2017-01-18] MEDS: LOSARTAN POTASSIUM 50 MG TABLET PO SCH (09:00)
[2017-01-18] MEDS ORDERED: ALLOPURINOL 300 MG TABLET PO SCH (09:00)
[2017-01-18] MEDS ORDERED: AMLODIPINE 10 MG TABLET PO SCH (09:00)
[2017-01-18 09:42] LABS: BAND % (MANUAL) 44 % (0-10); EOSINOPHILS % (MANUAL) 1 % (0-8); LYMPHOCYTES % (MANUAL) 4 % (20-40); METAMYELOCYTES % 1 % (0-1); MONOCYTES % (MANUAL) 2 % (2-10); NEUTROPHILS % (MANUAL) 48 % (42-75)
[2017-01-18] MEDS: ALLOPURINOL 300 MG TABLET PO SCH (10:13)
[2017-01-18] MEDS: ESCITALOPRAM OXALATE 10 MG TABLET PO SCH (10:13)
[2017-01-18] MEDS: NEUTRA PHOS PACKET PO SCH ×2 (10:14→14:43)
[2017-01-18] MEDS: AMLODIPINE 10 MG TABLET PO SCH (10:14)
--- NOTE | 2017-01-18 10:22 | NUR ---
held off Losartan potassium 50 mg due to decreased blood presurre and possible signs of orthostatic hypotension. , patient BP 123/54 hr 77. pt is asymptomatic. pt had no complaints of dizziness. no signs of acute distress. will reassess [pt for further complications.
[2017-01-18] MEDS: DOCUSATE SODIUM 100 MG CAPSULE PO SCH (14:43)
[2017-01-18] MEDS: MEROPENEM 1 G in IV NORMAL SALINE 100 ML IV SCH ×2 (14:43→21:22)
[2017-01-18] MEDS ORDERED: MAGNESIUM OXIDE 400 MG TABLET PO ONE (15:15)
[2017-01-18] MEDS ORDERED: SODIUM PHOSPHATE MM 15 MM in IV DEXTROSE 5% 250 ML IV ONE (18:45)
[2017-01-18] MEDS ORDERED: PRAMIPEXOLE 0.25 MG TABLET PO SCH (21:00)
[2017-01-18] MEDS ORDERED: SIMVASTATIN 10 MG TABLET PO SCH (21:00)
[2017-01-18] MEDS: PRAMIPEXOLE 0.25 MG TABLET PO SCH (21:22)
[2017-01-18] MEDS: SIMVASTATIN 10 MG TABLET PO SCH (21:23)
[2017-01-18 22:00] VITALS: BP 118/59
--- NOTE | 2017-01-19 00:46 | NUR ---
Patient c/o nausea and vomiting. Vomited x1, small amount. Patient is alert and verbally responsive. Able to make needs known. Denies any pain and discomfort. No acute distress. Called 's exchange. Spoke with Dr. Yelitza Moy yarn preparation supervisor. Awaiting call back.
[2017-01-19] MEDS: ONDANSETRON 4 MG/2 ML VIAL IV PRN (01:17)
[2017-01-19] MEDS ORDERED: ONDANSETRON 4 MG/2 ML VIAL ONE (01:25)
[2017-01-19] MEDS: MEROPENEM 1 G in IV NORMAL SALINE 100 ML IV SCH (06:20)
[2017-01-19] MEDS: PANTOPRAZOLE SODIUM 40 MG TABLET.DR PO SCH (06:20)
[2017-01-19 08:03] VITALS: BP 124/62
[2017-01-19 08:42] LABS: ALANINE AMINOTRANSFERASE 35 U/L (14-59); ALKALINE PHOSPHATASE 89 U/L (50-136); ASPARTATE AMINOTRANSFERASE 36 U/L (15-37); BILIRUBIN,TOTAL 0.3 mg/dL (0.2-1.0); CARBON DIOXIDE 33 mmol/L (21-32); CHLORIDE 103 mmol/L (98-107); CREATINE KINASE, TOTAL 29 U/L (26-192); CREATININE 0.7 mg/dL (0.6-1.3); GLUCOSE 105 mg/dL (74-106); MAGNESIUM 1.5 mg/dL (1.8-2.4); PHOSPHOROUS 2.8 mg/dL (2.5-4.9); POTASSIUM 3.8 mmol/L (3.5-5.1); UREA NITROGEN, BLOOD 11 mg/dL (7-18)
[2017-01-19 08:56] LABS: BASOPHILS % (AUTO) 0.6 % (0.0-2.0); EOSINOPHILS % (AUTO) 0.5 % (0.0-7.0); HEMATOCRIT 28.9 % (37-47); HEMOGLOBIN 9.7 G/DL (12.0-16.0); LYMPHOCYTES # (AUTO) 0.7 K/UL (0.8-4.8); LYMPHOCYTES % (AUTO) 8.6 % (20.5-51.5); MEAN CORPUSCULAR HGB CONC 34 g/dL (32.0-37.0); MEAN CORPUSCULAR VOLUME 92.7 FL (81.0-99.0); MONOCYTES # (AUTO) 0.5 K/UL (0.1-1.30); MONOCYTES % (AUTO) 5.9 % (0.0-11.0); NEUTROPHILS # (AUTO) 6.7 K/UL (1.8-8.9); NEUTROPHILS % (AUTO) 84.4 % (38.5-71.5); PLATELET COUNT (AUTO) 158 K/UL (150-450); RED BLOOD CELL COUNT(AUTO) 3.12 MIL/UL (4.2-5.4)
[2017-01-19] MEDS: LOSARTAN POTASSIUM 50 MG TABLET PO SCH (09:00)
[2017-01-19 09:03] LABS: WHITE BLOOD COUNT (AUTO) 7.9 K/UL (4.0-11.2)
[2017-01-19] MEDS: ALLOPURINOL 300 MG TABLET PO SCH (09:14)
[2017-01-19] MEDS: ESCITALOPRAM OXALATE 10 MG TABLET PO SCH (09:14)
[2017-01-19] MEDS: AMLODIPINE 10 MG TABLET PO SCH (09:14)
[2017-01-19 10:15] LABS: BAND % (MANUAL) 17 % (0-10); EOSINOPHILS % (MANUAL) 1 % (0-8); LYMPHOCYTES % (MANUAL) 11 % (20-40); METAMYELOCYTES % 4 % (0-1); MONOCYTES % (MANUAL) 5 % (2-10); MYELOCYTES % 4 % (0-0); NEUTROPHILS % (MANUAL) 58 % (42-75)
--- NOTE | 2017-01-19 10:49 | NUR ---
pt not given lozartan dose due to decreased blood pressure and has other blood pressure medications that possibly drop pts blood pressure even further. pt has possible orthostatic hypotension. pt blood pressure on 123/62. pt asympotmatic and is concerned about receiving too much blood pressure medications. will follow up with md concerning medications.
[2017-01-19] MEDS: ALBUTEROL SULFATE 1.25 MG/3 ML NEBU NEB SCH ×2 (13:30→20:28)
[2017-01-19] MEDS ORDERED: MAGNESIUM OXIDE 400 MG TABLET PO ONE (14:15)
[2017-01-19] MEDS: DOCUSATE SODIUM 100 MG CAPSULE PO SCH (14:35)
[2017-01-19] MEDS: ACETAMINOPHEN 325 MG TABLET PO PRN (15:57)
--- NOTE | 2017-01-19 15:58 | NUR ---
pt states she has a headache. pt given tylenol. well reassess.
--- NOTE | 2017-01-19 18:52 | NUR ---
pt had no states of confusion on shit. pt had possible signs of hypotension. meds given as prescribed. provided comfort measures. continued to assess pt for signs of confusion. pt more compliant when given a magazine. will endorse new orders.
[2017-01-19 20:00] VITALS: BP 133/65
[2017-01-19 21:29] VITALS: BP 133/65
[2017-01-19] MEDS: SIMVASTATIN 10 MG TABLET PO SCH (21:36)
[2017-01-19] MEDS: PRAMIPEXOLE 0.25 MG TABLET PO SCH (21:36)
[2017-01-20] MEDS: ALBUTEROL SULFATE 1.25 MG/3 ML NEBU NEB SCH ×4 (02:20→19:10)
--- NOTE | 2017-01-20 02:22 | NUR ---
Pt asleep. No sob noted. HHN tx not given. Charge nurse aware.
[2017-01-20] MEDS: PANTOPRAZOLE SODIUM 40 MG TABLET.DR PO SCH (06:31)
[2017-01-20 08:07] VITALS: BP 122/65
[2017-01-20] MEDS: AMLODIPINE 10 MG TABLET PO SCH (08:20)
[2017-01-20] MEDS: LOSARTAN POTASSIUM 50 MG TABLET PO SCH (08:20)
[2017-01-20] MEDS: ALLOPURINOL 300 MG TABLET PO SCH (08:20)
[2017-01-20] MEDS: DOCUSATE SODIUM 100 MG CAPSULE PO SCH (08:20)
--- NOTE | 2017-01-20 08:32 | NUR ---
PT RECEIVED IN BED AWAKE.BREAKFAST SERVED,NO C/O PAIN NOTED.V/S ARE STABLE.PT IS [id number] ASSESSMENT DONE.
[2017-01-20 08:45] LABS: BASOPHILS % (AUTO) 0.6 % (0.0-2.0); EOSINOPHILS % (AUTO) 0.8 % (0.0-7.0); HEMATOCRIT 28.3 % (37-47); HEMOGLOBIN 9.4 G/DL (12.0-16.0); LYMPHOCYTES # (AUTO) 0.5 K/UL (0.8-4.8); LYMPHOCYTES % (AUTO) 10.4 % (20.5-51.5); MEAN CORPUSCULAR HEMOGLOBIN 30.5 UUG (27.0-31.0); MEAN CORPUSCULAR HGB CONC 33 g/dL (32.0-37.0); MEAN CORPUSCULAR VOLUME 91.7 FL (81.0-99.0); MONOCYTES # (AUTO) 0.4 K/UL (0.1-1.30); MONOCYTES % (AUTO) 8.4 % (0.0-11.0); NEUTROPHILS # (AUTO) 3.6 K/UL (1.8-8.9); NEUTROPHILS % (AUTO) 79.8 % (38.5-71.5); PLATELET COUNT (AUTO) 150 K/UL (150-450); RED BLOOD CELL COUNT(AUTO) 3.08 MIL/UL (4.2-5.4)
[2017-01-20 08:47] LABS: IRON, SERUM 144 ug/dL (50-175)
[2017-01-20 08:52] LABS: WHITE BLOOD COUNT (AUTO) 4.5 K/UL (4.0-11.2)
[2017-01-20 09:15] LABS: ALANINE AMINOTRANSFERASE 33 U/L (14-59); ALKALINE PHOSPHATASE 80 U/L (50-136); ASPARTATE AMINOTRANSFERASE 35 U/L (15-37); BILIRUBIN,TOTAL 0.3 mg/dL (0.2-1.0); CARBON DIOXIDE 37 mmol/L (21-32); CHLORIDE 102 mmol/L (98-107); CREATININE 0.7 mg/dL (0.6-1.3); GLUCOSE 98 mg/dL (74-106); MAGNESIUM 1.6 mg/dL (1.8-2.4); PHOSPHOROUS 3.1 mg/dL (2.5-4.9); POTASSIUM 4.1 mmol/L (3.5-5.1); TOTAL PROTEIN, SERUM 5.1 g/dL (6.4-8.2); UREA NITROGEN, BLOOD 11 mg/dL (7-18)
[2017-01-20 09:17] LABS: FERRITIN 2000 ng/mL (8-252)
[2017-01-20] MEDS: ONDANSETRON 4 MG/2 ML VIAL IV PRN (10:39)
[2017-01-20] MEDS: MAGNESIUM CHLORIDE 64 MG TABLET.SA PO SCH (12:15)
--- NOTE | 2017-01-20 12:30 | NUR ---
PT EATING HIS LUNCH,FRIEND IS AT BED SIDE.
[2017-01-20 13:03] LABS: BAND % (MANUAL) 16 % (0-10); LYMPHOCYTES % (MANUAL) 14 % (20-40); METAMYELOCYTES % 6 % (0-1); MONOCYTES % (MANUAL) 12 % (2-10); MYELOCYTES % 5 % (0-0); NEUTROPHILS % (MANUAL) 47 % (42-75)
--- NOTE | 2017-01-20 17:37 | NUR ---
PT IS RESTING IN HIS BED ,C/O PAIN AT THE SCALE OF 7 ,PER MD ORDERS PAIN MEDICATIONS GIVEN.
[2017-01-20 20:06] VITALS: BP 122/57
[2017-01-20 20:31] VITALS: BP 133/65
[2017-01-20] MEDS: SIMVASTATIN 10 MG TABLET PO SCH (20:53)
[2017-01-20] MEDS: PRAMIPEXOLE 0.25 MG TABLET PO SCH (20:54)
[2017-01-20 20:58] VITALS: BP 122/57
[2017-01-21] MEDS: ALBUTEROL SULFATE 1.25 MG/3 ML NEBU NEB SCH ×4 (00:59→19:11)
[2017-01-21] MEDS: PANTOPRAZOLE SODIUM 40 MG TABLET.DR PO SCH (06:17)
--- NOTE | 2017-01-21 07:44 | NUR ---
RECEIVED PATIENT AWAKE, ALERT, AND ORIENTED X4.CALL LIGHT WITHIN REACH .NO C/O PAIN NOTED.BREAKFAST SERVED.
[2017-01-21 08:00] VITALS: BP 121/61
[2017-01-21] MEDS: DOCUSATE SODIUM 100 MG CAPSULE PO SCH (08:14)
[2017-01-21] MEDS: MAGNESIUM CHLORIDE 64 MG TABLET.SA PO SCH (08:15)
[2017-01-21] MEDS: AMLODIPINE 10 MG TABLET PO SCH (08:15)
[2017-01-21] MEDS: ALLOPURINOL 300 MG TABLET PO SCH (08:15)
[2017-01-21] MEDS: ESCITALOPRAM OXALATE 10 MG TABLET PO SCH (08:15)
[2017-01-21] MEDS: LOSARTAN POTASSIUM 50 MG TABLET PO SCH (08:15)
[2017-01-21 09:18] LABS: BASOPHILS % (AUTO) 0.4 % (0.0-2.0); EOSINOPHILS % (AUTO) 0.9 % (0.0-7.0); HEMATOCRIT 30.3 % (37-47); LYMPHOCYTES # (AUTO) 0.8 K/UL (0.8-4.8); LYMPHOCYTES % (AUTO) 17.1 % (20.5-51.5); MEAN CORPUSCULAR HEMOGLOBIN 30.4 UUG (27.0-31.0); MEAN CORPUSCULAR HGB CONC 33 g/dL (32.0-37.0); MEAN CORPUSCULAR VOLUME 91.7 FL (81.0-99.0); MONOCYTES # (AUTO) 0.4 K/UL (0.1-1.30); MONOCYTES % (AUTO) 9.4 % (0.0-11.0); NEUTROPHILS # (AUTO) 3.4 K/UL (1.8-8.9); NEUTROPHILS % (AUTO) 72.2 % (38.5-71.5); PLATELET COUNT (AUTO) 168 K/UL (150-450); WHITE BLOOD COUNT (AUTO) 4.6 K/UL (4.0-11.2)
[2017-01-21] MEDS: ONDANSETRON 4 MG/2 ML VIAL IV PRN (11:17)
[2017-01-21 20:00] VITALS: BP 118/52
[2017-01-21] MEDS: SIMVASTATIN 10 MG TABLET PO SCH (21:08)
[2017-01-21] MEDS: PRAMIPEXOLE 0.25 MG TABLET PO SCH (21:08)
[2017-01-22] MEDS: ALBUTEROL SULFATE 1.25 MG/3 ML NEBU NEB SCH ×4 (01:11→19:09)
[2017-01-22] MEDS: PANTOPRAZOLE SODIUM 40 MG TABLET.DR PO SCH (06:18)
--- NOTE | 2017-01-22 07:15 | NUR ---
rec's bedside sbar report. pt awake, denied any pain/discomfort. pt positioned for comfort
[2017-01-22 08:07] LABS: BASOPHILS % (AUTO) 0.3 % (0.0-2.0); EOSINOPHILS % (AUTO) 1.2 % (0.0-7.0); HEMATOCRIT 28.4 % (37-47); HEMOGLOBIN 9.4 G/DL (12.0-16.0); LYMPHOCYTES # (AUTO) 0.6 K/UL (0.8-4.8); LYMPHOCYTES % (AUTO) 19.6 % (20.5-51.5); MEAN CORPUSCULAR HEMOGLOBIN 30.6 UUG (27.0-31.0); MEAN CORPUSCULAR HGB CONC 33 g/dL (32.0-37.0); MEAN CORPUSCULAR VOLUME 91.9 FL (81.0-99.0); MONOCYTES # (AUTO) 0.3 K/UL (0.1-1.30); NEUTROPHILS # (AUTO) 2.3 K/UL (1.8-8.9); NEUTROPHILS % (AUTO) 69.9 % (38.5-71.5); PLATELET COUNT (AUTO) 150 K/UL (150-450); RED BLOOD CELL COUNT(AUTO) 3.09 MIL/UL (4.2-5.4); WHITE BLOOD COUNT (AUTO) 3.2 K/UL (4.0-11.2)
[2017-01-22 08:33] VITALS: BP 127/60
[2017-01-22] MEDS: DRONABINOL 2.5 MG CAPSULE PO SCH (09:12)
[2017-01-22] MEDS: MAGNESIUM CHLORIDE 64 MG TABLET.SA PO SCH (09:13)
[2017-01-22] MEDS: LOSARTAN POTASSIUM 50 MG TABLET PO SCH (09:13)
[2017-01-22] MEDS: ALLOPURINOL 300 MG TABLET PO SCH (09:14)
[2017-01-22] MEDS: ESCITALOPRAM OXALATE 10 MG TABLET PO SCH (09:14)
[2017-01-22] MEDS: AMLODIPINE 10 MG TABLET PO SCH (09:19)
[2017-01-22] MEDS: DOCUSATE SODIUM 100 MG CAPSULE PO SCH (09:22)
[2017-01-22 11:03] LABS: BAND % (MANUAL) 5 % (0-10); LYMPHOCYTES % (MANUAL) 15 % (20-40); MONOCYTES % (MANUAL) 10 % (2-10); NEUTROPHILS % (MANUAL) 70 % (42-75)
--- NOTE | 2017-01-22 15:40 | NUR ---
REHAB TEAM CONFERENCE MEETING 01/22/17
--- NOTE | 2017-01-22 19:06 | NUR ---
PTT PROGRESSING TOWARDS GOAL. PARTICIPATIES IN ACTIVITIES MEDS, DOES USE A DIAPER. CONTINUE PLAN OF CARE.
[2017-01-22 20:25] VITALS: BP 123/56
[2017-01-22] MEDS: PRAMIPEXOLE 0.25 MG TABLET PO SCH (20:47)
[2017-01-22] MEDS: SIMVASTATIN 10 MG TABLET PO SCH (20:47)
[2017-01-23] MEDS: ALBUTEROL SULFATE 1.25 MG/3 ML NEBU NEB SCH ×4 (01:03→19:30)
[2017-01-23] MEDS: PANTOPRAZOLE SODIUM 40 MG TABLET.DR PO SCH (06:12)
--- NOTE | 2017-01-23 06:47 | NUR ---
Patient slept well throughout the night, had no complains of pain or discomfort. No signs of distress noted, continues on O2 at 2 LPM via N/C. Maintained clean and dry, call light within reach.
--- NOTE | 2017-01-23 07:12 | NUR ---
Received patient from cnc machinist 2nd shift, patient resting comfortably in bed, no signs of acute distress noted. VS WNL, no complaints of pain at this time. IV site in left FA clean, dry, and intact, no redness or swelling noted. IV line intact with saline flush. No other verbalized needs at this time, safety and fall precautions maintained.
[2017-01-23 08:00] VITALS: BP 115/60
[2017-01-23] MEDS: DRONABINOL 2.5 MG CAPSULE PO SCH (08:42)
[2017-01-23] MEDS: AMLODIPINE 10 MG TABLET PO SCH (08:42)
[2017-01-23] MEDS: ESCITALOPRAM OXALATE 10 MG TABLET PO SCH (08:43)
[2017-01-23] MEDS: ALLOPURINOL 300 MG TABLET PO SCH (08:43)
[2017-01-23] MEDS: MAGNESIUM CHLORIDE 64 MG TABLET.SA PO SCH (08:43)
[2017-01-23] MEDS: LOSARTAN POTASSIUM 50 MG TABLET PO SCH (08:43)
[2017-01-23] MEDS: DOCUSATE SODIUM 100 MG CAPSULE PO SCH (09:00)
--- NOTE | 2017-01-23 09:28 | NUR ---
Patient refused Colace medication. Explained to patient to benefit of taking medication and risk of not taking medication, including the assistance the medication will give to prevent narcotic induced constipation. Patient continued to refuse medication.
[2017-01-23] MEDS: ONDANSETRON 4 MG/2 ML VIAL IV PRN (14:58)
--- NOTE | 2017-01-23 15:08 | NUR ---
Patient had complaints of nausea, had 1 episode of vomiting in bathroom while sitting on toilet. Started as dry heaves, then had clear, little amount of emesis with dark spots. No other complaints at this time. Patient given Zofran IV 4mg per orders. No other signs of acute distress noted. No other verbalized needs at this time. Safety and fall precautions maintained. Will reassess.
--- NOTE | 2017-01-23 20:00 | NUR ---
Pt refused respiratory Tx. Said that she did not need it. Also, when asked about the 0100 Tx, replied that she did not want to be woken up. No respiratory distress noted. No Txs administered.
[2017-01-23] MEDS: SIMVASTATIN 10 MG TABLET PO SCH (20:41)
[2017-01-23] MEDS: PRAMIPEXOLE 0.25 MG TABLET PO SCH (20:41)
[2017-01-23 20:52] VITALS: BP 110/51
[2017-01-24] MEDS: ALBUTEROL SULFATE 1.25 MG/3 ML NEBU NEB SCH ×4 (01:30→19:24)
[2017-01-24] MEDS: PANTOPRAZOLE SODIUM 40 MG TABLET.DR PO SCH (06:44)
--- NOTE | 2017-01-24 06:46 | NUR ---
Patient alert and oriented and verbally able to let needs known, denies any pain or discomfort at this time. No signs of distress noted, maintained clean and dry, call light within reach.
--- NOTE | 2017-01-24 08:07 | NUR ---
PT AWAKE AND ALERT, REFUSED HHN RT TX AT THIS TIME, NO S/S DISTRESS NOTED.
[2017-01-24 08:18] VITALS: BP 114/57
[2017-01-24] MEDS: ALLOPURINOL 300 MG TABLET PO SCH (08:25)
[2017-01-24] MEDS: DRONABINOL 2.5 MG CAPSULE PO SCH (08:25)
[2017-01-24] MEDS: ESCITALOPRAM OXALATE 10 MG TABLET PO SCH (08:25)
[2017-01-24] MEDS: MAGNESIUM CHLORIDE 64 MG TABLET.SA PO SCH (08:26)
[2017-01-24] MEDS: AMLODIPINE 10 MG TABLET PO SCH (08:26)
[2017-01-24] MEDS: DOCUSATE SODIUM 100 MG CAPSULE PO SCH (09:00)
[2017-01-24] MEDS: LOSARTAN POTASSIUM 50 MG TABLET PO SCH (09:00)
--- NOTE | 2017-01-24 09:00 | NUR ---
Received patient awake, alert and oriented. Not in any form of distress. No complaints of pain. Nauseated but no vomiting. With decreased appetite, encouraged to take medications with food. With patent G 22 Saline IV Lock on left hand. Call light within reach
--- NOTE | 2017-01-24 17:44 | NUR ---
Tolerated therapy well. IV flushed, patent. No vomiting, but nauseated, offered Zofran but refused and said "Those things don't work." No pain or discomfort noted. No s/s of distress. Call light within reach.
[2017-01-24 19:00] VITALS: BP 109/53
[2017-01-24] MEDS: SIMVASTATIN 10 MG TABLET PO SCH (21:34)
[2017-01-24] MEDS: PRAMIPEXOLE 0.25 MG TABLET PO SCH (21:35)
[2017-01-25] MEDS: ALBUTEROL SULFATE 1.25 MG/3 ML NEBU NEB SCH ×4 (00:55→18:57)
[2017-01-25] MEDS: PANTOPRAZOLE SODIUM 40 MG TABLET.DR PO SCH (07:10)
--- NOTE | 2017-01-25 07:21 | NUR ---
Patient received from operation shift supervisor, resting comfortably in bed, no signs of acute distress noted. VS WNL, no complaints of pain at this time. No other verbalized needs at this time. IV site WNL, clean, dry, and intact, no redness or swelling. Fall and safety precautions maintained. Clal light within reach.
[2017-01-25 07:40] LABS: ALANINE AMINOTRANSFERASE 20 U/L (14-59); ALKALINE PHOSPHATASE 83 U/L (50-136); ASPARTATE AMINOTRANSFERASE 26 U/L (15-37); BILIRUBIN,TOTAL 0.7 mg/dL (0.2-1.0); CARBON DIOXIDE 31 mmol/L (21-32); CHLORIDE 100 mmol/L (98-107); CREATININE 0.7 mg/dL (0.6-1.3); GLUCOSE 107 mg/dL (74-106); MAGNESIUM 1.6 mg/dL (1.8-2.4); PHOSPHOROUS 4.2 mg/dL (2.5-4.9); POTASSIUM 3.7 mmol/L (3.5-5.1); TOTAL PROTEIN, SERUM 5.9 g/dL (6.4-8.2); UREA NITROGEN, BLOOD 13 mg/dL (7-18)
[2017-01-25 07:51] LABS: BASOPHILS % (AUTO) 0.3 % (0.0-2.0); EOSINOPHILS % (AUTO) 0.8 % (0.0-7.0); HEMATOCRIT 28.6 % (37-47); HEMOGLOBIN 9.4 G/DL (12.0-16.0); LYMPHOCYTES # (AUTO) 0.8 K/UL (0.8-4.8); LYMPHOCYTES % (AUTO) 24.3 % (20.5-51.5); MEAN CORPUSCULAR HGB CONC 33 g/dL (32.0-37.0); MEAN CORPUSCULAR VOLUME 91.2 FL (81.0-99.0); MONOCYTES # (AUTO) 0.3 K/UL (0.1-1.30); NEUTROPHILS # (AUTO) 2.2 K/UL (1.8-8.9); NEUTROPHILS % (AUTO) 65.6 % (38.5-71.5); PLATELET COUNT (AUTO) 153 K/UL (150-450); RED BLOOD CELL COUNT(AUTO) 3.14 MIL/UL (4.2-5.4); WHITE BLOOD COUNT (AUTO) 3.3 K/UL (4.0-11.2)
[2017-01-25 08:22] VITALS: BP 117/50
[2017-01-25] MEDS: AMLODIPINE 10 MG TABLET PO SCH (09:00)
[2017-01-25] MEDS: LOSARTAN POTASSIUM 50 MG TABLET PO SCH (09:00)
[2017-01-25] MEDS: ESCITALOPRAM OXALATE 10 MG TABLET PO SCH (10:57)
[2017-01-25] MEDS: MAGNESIUM CHLORIDE 64 MG TABLET.SA PO SCH (10:57)
[2017-01-25] MEDS: DOCUSATE SODIUM 100 MG CAPSULE PO SCH (10:57)
[2017-01-25] MEDS: ALLOPURINOL 300 MG TABLET PO SCH (10:57)
[2017-01-25] MEDS: DRONABINOL 2.5 MG CAPSULE PO SCH (10:57)
[2017-01-25] MEDS: ACETAMINOPHEN 325 MG TABLET PO PRN ×2 (11:49→20:21)
[2017-01-25] MEDS ORDERED: BISACODYL 5 MG TABLET.DR PO PRN (13:45)
[2017-01-25] MEDS ORDERED: MAGNESIUM OXIDE 400 MG TABLET PO ONE (14:15)
[2017-01-25] MEDS: SIMVASTATIN 10 MG TABLET PO SCH (20:20)
[2017-01-25] MEDS: PRAMIPEXOLE 0.25 MG TABLET PO SCH (20:21)
[2017-01-25 23:29] VITALS: BP 113/56
[2017-01-26] MEDS: ALBUTEROL SULFATE 1.25 MG/3 ML NEBU NEB SCH ×4 (00:36→18:52)
[2017-01-26] MEDS: PANTOPRAZOLE SODIUM 40 MG TABLET.DR PO SCH (07:48)
[2017-01-26] MEDS: DOCUSATE SODIUM 100 MG CAPSULE PO SCH ×2 (09:00→09:47)
[2017-01-26] MEDS: MAGNESIUM CHLORIDE 64 MG TABLET.SA PO SCH (09:47)
[2017-01-26] MEDS: ALLOPURINOL 300 MG TABLET PO SCH (09:47)
[2017-01-26] MEDS: ESCITALOPRAM OXALATE 10 MG TABLET PO SCH (09:48)
[2017-01-26] MEDS: AMLODIPINE 10 MG TABLET PO SCH (09:50)
[2017-01-26] MEDS: LOSARTAN POTASSIUM 50 MG TABLET PO SCH (09:50)
[2017-01-26 10:38] VITALS: BP 115/55
[2017-01-26] MEDS: ONDANSETRON 4 MG/2 ML VIAL IV PRN (11:06)
[2017-01-26 13:07] VITALS: BP 114/51
--- NOTE | 2017-01-26 18:06 | NUR ---
PT. C/O NAUSEA MOST OF SHIFT. ZOFRAN GIVEN WITH LIMITED EFFECTIVENESS. REGLAN ORDERED BUT ON HOLD FOR CLARIFICATION BY PHARMACY. WAITING FOR 1ST REGLAN DOSE. PT. OOB TO BR USING [facility] AND 1 PERS ASSIST. PT. NOT TOLERATING MOVEMENT DUE TO INCREASED FEELING OF NAUSEA. REPOS. LATERALLY INDEPENDENTLY. POOR APPETITE IN AM AND IMPROVED ORAL INTAKE AT DINNER TIME. PT. STATES" I'M NOT FEELING HUNGRY BUT I JUST FORCE MYSELF". NO C/O NAUSEA OR EMESIS AFTER DINNER
[2017-01-26] MEDS: METOCLOPRAMIDE HCL 5 MG TABLET PO SCH (18:40)
[2017-01-26] MEDS: PRAMIPEXOLE 0.25 MG TABLET PO SCH (20:26)
[2017-01-26] MEDS: SIMVASTATIN 10 MG TABLET PO SCH (20:26)
[2017-01-27] MEDS: ALBUTEROL SULFATE 1.25 MG/3 ML NEBU NEB SCH ×4 (00:38→20:26)
[2017-01-27] MEDS: PANTOPRAZOLE SODIUM 40 MG TABLET.DR PO SCH (06:12)
--- NOTE | 2017-01-27 07:04 | NUR ---
Patient slept well all night, had no complains of pain or discomfort. No complains of nausea. No signs of respiratory distress, maintained clean and dry, all needs attended to.
--- NOTE | 2017-01-27 08:00 | NUR ---
Received patient in bed awake, verbally responsive, coherent, afebrile, not in any form of acute distress. She denies any pain or discomfort at this time. Environmental safety check done. Reminded to use call light when in need of assistance. Call light placed within reach. Assisted to her needs.
[2017-01-27 08:15] VITALS: BP 122/60
[2017-01-27] MEDS: METOCLOPRAMIDE HCL 5 MG TABLET PO SCH ×3 (08:31→16:59)
[2017-01-27] MEDS: MAGNESIUM CHLORIDE 64 MG TABLET.SA PO SCH (10:09)
[2017-01-27] MEDS: ESCITALOPRAM OXALATE 10 MG TABLET PO SCH (10:09)
[2017-01-27] MEDS: DOCUSATE SODIUM 100 MG CAPSULE PO SCH (10:09)
[2017-01-27] MEDS: ALLOPURINOL 300 MG TABLET PO SCH (10:10)
[2017-01-27] MEDS: AMLODIPINE 10 MG TABLET PO SCH (10:10)
[2017-01-27] MEDS: LOSARTAN POTASSIUM 50 MG TABLET PO SCH (10:10)
--- NOTE | 2017-01-27 20:28 | NUR ---
Pt awake. Before HHN tx pt was agree to get it and after medication was scanned and opened pt refused tx. Nurse notified.
[2017-01-27] MEDS: PRAMIPEXOLE 0.25 MG TABLET PO SCH (21:00)
--- NOTE | 2017-01-27 21:00 | NUR ---
NSG: Pt refused respiratory Tx. Said that she did not need it.Received patient resting in bed. no c/o pain or discomfort this time. compliant with meds. assisted to use bathroom. pleasant upon approach. call light w/in reach. continue plan of care.
[2017-01-27] MEDS: SIMVASTATIN 10 MG TABLET PO SCH (21:02)
[2017-01-27 21:30] VITALS: BP 100/54
[2017-01-28] MEDS: ALBUTEROL SULFATE 1.25 MG/3 ML NEBU NEB SCH ×4 (01:30→19:02)
[2017-01-28] MEDS: PANTOPRAZOLE SODIUM 40 MG TABLET.DR PO SCH (06:17)
--- NOTE | 2017-01-28 06:58 | NUR ---
NSG: Patient alert and oriented laying in bed, able to let needs known, denies any pain or discomfort at this time. No signs of distress noted, maintained clean and dry, call light within reach.continue plan of care.
[2017-01-28 07:38] VITALS: BP 111/55
[2017-01-28] MEDS: METOCLOPRAMIDE HCL 5 MG TABLET PO SCH ×3 (07:51→17:13)
[2017-01-28] MEDS: DOCUSATE SODIUM 100 MG CAPSULE PO SCH (08:22)
[2017-01-28] MEDS: ESCITALOPRAM OXALATE 10 MG TABLET PO SCH (08:23)
[2017-01-28] MEDS: MAGNESIUM CHLORIDE 64 MG TABLET.SA PO SCH (08:23)
[2017-01-28] MEDS: ALLOPURINOL 300 MG TABLET PO SCH (08:23)
[2017-01-28] MEDS: AMLODIPINE 10 MG TABLET PO SCH (08:29)
[2017-01-28] MEDS: LOSARTAN POTASSIUM 50 MG TABLET PO SCH (08:30)
[2017-01-28 20:00] VITALS: BP 119/80
[2017-01-28] MEDS ORDERED: SHARK LIVER OIL/PETROLAT OINT 60 GM TUBE RC PRN (20:30)
[2017-01-28] MEDS: PRAMIPEXOLE 0.25 MG TABLET PO SCH (21:51)
[2017-01-28] MEDS: ACETAMINOPHEN 325 MG TABLET PO PRN (21:51)
[2017-01-28] MEDS: SIMVASTATIN 10 MG TABLET PO SCH (21:51)
[2017-01-28 22:00] VITALS: BP 109/52
[2017-01-29] MEDS: ALBUTEROL SULFATE 1.25 MG/3 ML NEBU NEB SCH ×4 (00:59→18:54)
[2017-01-29] MEDS: PANTOPRAZOLE SODIUM 40 MG TABLET.DR PO SCH (07:00)
[2017-01-29] MEDS: METOCLOPRAMIDE HCL 5 MG TABLET PO SCH ×3 (08:22→17:15)
[2017-01-29 08:50] VITALS: BP 112/51
[2017-01-29] MEDS: ESCITALOPRAM OXALATE 10 MG TABLET PO SCH (09:00)
--- NOTE | 2017-01-29 10:18 | NUR ---
Anesthesiology Physician SW met with patient at [facility] to assess pt needs and provide support. The patient is a 76 year old [place] female ([place] Citizen speaking) who was admitted for generalized weakness and fatigue. The patient was laying in her bed during the assessment. She was calm and cooperative during the interview. The patient's mood was somewhat depressed. The patient stated that her sleep has been "on and off" and that she was experiencing severe nausea and numbness all of over her body upon admission. The patient statedthat she has a history of leukemia and that she receives chemotherapy 2 times per month and this causes her to feel the numbness. Per pt, she lives in an apartment with her son [[id number] [place] [address]; ]. The patient acknowledged her condition and the need for intervention. The patient stated that she has strong social support from her children. She stated that her emergency contact is her son Jean Marie Costa . Social history: The patient stated that she was born and raised in [facility]. She stated that she was raised by both of her parents. She stated that she moved to the [place] 40 years ago. The patient completed high school in [place]. The patient stated that she worked for [employer]. The patient denied any history of abuse or domestic violence. The patient denied any history of drug or alcohol abuse. The patient stated that she was and that her 8 months ago. She has twins sons and a daughter. The patient stated that she would like to return home with her son upon discharge. SW engaged in active listening and provided supportive counseling during the interview to address patient's depressive symptoms related to her decline in functioning. SW will continue to address issues of loss related to recent hospitalization. SW will encourage compliance with rehab goals. SW will be available as needed.
[2017-01-29] MEDS: MAGNESIUM CHLORIDE 64 MG TABLET.SA PO SCH (10:49)
[2017-01-29] MEDS: SENNOSIDES/DOCUSATE SODIUM TABLET PO SCH (10:49)
[2017-01-29] MEDS: DOCUSATE SODIUM 100 MG CAPSULE PO SCH (10:50)
[2017-01-29] MEDS: AMLODIPINE 10 MG TABLET PO SCH (10:50)
[2017-01-29] MEDS: ALLOPURINOL 300 MG TABLET PO SCH (10:51)
[2017-01-29] MEDS: LOSARTAN POTASSIUM 50 MG TABLET PO SCH (10:51)
--- NOTE | 2017-01-29 15:10 | NUR ---
Team Conference Meeting 01/29/17
[2017-01-29 20:00] VITALS: BP 118/62
[2017-01-29] MEDS: PRAMIPEXOLE 0.25 MG TABLET PO SCH (20:11)
[2017-01-29] MEDS: SIMVASTATIN 10 MG TABLET PO SCH (20:11)
[2017-01-29] MEDS: ACETAMINOPHEN 325 MG TABLET PO PRN (20:11)
[2017-01-30] MEDS: ALBUTEROL SULFATE 1.25 MG/3 ML NEBU NEB SCH ×4 (01:03→19:40)
[2017-01-30] MEDS: ACETAMINOPHEN 325 MG TABLET PO PRN ×2 (06:06→20:19)
[2017-01-30] MEDS: PANTOPRAZOLE SODIUM 40 MG TABLET.DR PO SCH (06:06)
[2017-01-30 07:49] VITALS: BP 110/49
--- NOTE | 2017-01-30 07:51 | NUR ---
PATIENT RECEIVED IN ROOM RESTING IN BED ALERT, AWAKE IN NO ACUTE DISTRESS. RESPIRATIONS EVEN AND UNLABORED. SAFETY MAINTAINED. CALL LIGHT AT REACH.
[2017-01-30] MEDS: ONDANSETRON 4 MG/2 ML VIAL IV PRN (08:13)
[2017-01-30] MEDS: METOCLOPRAMIDE HCL 5 MG TABLET PO SCH ×3 (08:40→17:03)
[2017-01-30] MEDS: AMLODIPINE 10 MG TABLET PO SCH (08:41)
[2017-01-30] MEDS: MAGNESIUM CHLORIDE 64 MG TABLET.SA PO SCH (08:41)
[2017-01-30] MEDS: ESCITALOPRAM OXALATE 10 MG TABLET PO SCH (08:41)
[2017-01-30] MEDS: ALLOPURINOL 300 MG TABLET PO SCH (08:42)
[2017-01-30] MEDS: LOSARTAN POTASSIUM 50 MG TABLET PO SCH (08:42)
[2017-01-30] MEDS: DOCUSATE SODIUM 100 MG CAPSULE PO SCH (08:44)
[2017-01-30] MEDS: SENNOSIDES/DOCUSATE SODIUM TABLET PO SCH (08:44)
--- NOTE | 2017-01-30 18:47 | NUR ---
END OF SHIFT NOTE: PATIENT IN NO ACUTE DISTRESS THROUGHOUT SHIFT. NO C/O PAIN/ VSS. DENIED N/V. TOLERATED FOOD AND HAD GOOD APPETITE. AMBULATES TO BATHROOM WITH STAND BY ASSIST AND FWW. NEEDS MET BY STAFF.
[2017-01-30 20:18] VITALS: BP 110/42
[2017-01-30] MEDS: SIMVASTATIN 10 MG TABLET PO SCH (20:18)
[2017-01-30] MEDS: PRAMIPEXOLE 0.25 MG TABLET PO SCH (20:18)
[2017-01-31] MEDS: ALBUTEROL SULFATE 1.25 MG/3 ML NEBU NEB SCH ×3 (01:27→13:30)
[2017-01-31] MEDS: METOCLOPRAMIDE HCL 5 MG TABLET PO SCH ×2 (06:51→11:30)
[2017-01-31] MEDS: PANTOPRAZOLE SODIUM 40 MG TABLET.DR PO SCH (06:51)
[2017-01-31] MEDS: MAGNESIUM CHLORIDE 64 MG TABLET.SA PO SCH (08:19)
[2017-01-31] MEDS: DOCUSATE SODIUM 100 MG CAPSULE PO SCH (08:19)
[2017-01-31] MEDS: ALLOPURINOL 300 MG TABLET PO SCH (08:19)
[2017-01-31] MEDS: ESCITALOPRAM OXALATE 10 MG TABLET PO SCH (08:19)
[2017-01-31] MEDS: LOSARTAN POTASSIUM 50 MG TABLET PO SCH (08:21)
[2017-01-31] MEDS: AMLODIPINE 10 MG TABLET PO SCH (08:21)
[2017-01-31] MEDS: SENNOSIDES/DOCUSATE SODIUM TABLET PO SCH (08:22)
[2017-01-31 08:23] VITALS: BP 109/61
--- NOTE | 2017-01-31 08:26 | NUR ---
pt had decrease blood pressure 109/61/ meds not given due to low blood pressure. pt asymptomatic. pt also refused senna. explained risks and benifits will contineu to reasses for complications.
--- NOTE | 2017-01-31 16:46 | NUR ---
PT DISCHARGED at [facility] with son. pt given discharge instructions including appointments and medications from pharmacy. pt given home meds. pt also educated with [facility]. pt verbalizes understanding and son will follow up with the directions. son signed discharge papers and provided copy of prescriptions and summary. pt stable condition without acute distress. all home meds given. pt left in a wheelchair and helped in transfer. no fall accidents
[2018-01-18] MEDS ORDERED: TBO-FILGRASTIM 300 MCG/0.5 ML SYRINGE SQ ONE (10:00)
== END 2017-01-31 16:40 | disposition home health service (06) | DRG 841 ==
PROVIDERS: ADMIT Physical Medicine & Rehabilitation Pain Medicine; ATTEND Physical Medicine & Rehabilitation Pain Medicine
DX: C91.10 Chronic lymphocytic leukemia of B-cell type not having achieved remission (principal); C85.90 Non-Hodgkin lymphoma, unspecified, unspecified site; I10 Essential (primary) hypertension; Z85.3 Personal history of malignant neoplasm of breast; R05 Cough; R06.00 Dyspnea, unspecified; R11.0 Nausea; R53.1 Weakness; R53.81 Other malaise; Z79.899 Other long term (current) drug therapy; R53.83 Other fatigue; M10.9 Gout, unspecified; D64.9 Anemia, unspecified; D69.6 Thrombocytopenia, unspecified; D89.9 Disorder involving the immune mechanism, unspecified; E83.39 Other disorders of phosphorus metabolism; K31.84 Gastroparesis; K59.00 Constipation, unspecified; Z92.21 Personal history of antineoplastic chemotherapy; R42 Dizziness and giddiness; K64.9 Unspecified hemorrhoids; Z90.12 Acquired absence of left breast and nipple
CPT/HCPCS: 36415; 83550; 83735; 84100; 85025; 94640; 94664; 97110; 97112; 97116; 97161; 97165; 97530; 97535; A4663; A9150; J1447; J2185; J2405; J3490; J7060; J8597; Q0167

== ENCOUNTER 2020-02-27 14:49 | Inpatient (IN) | payer MEDICARE, OTHER ==
[~2020-02-27] VITALS: Ht 152.4 cm; Wt 59.0 kg
--- NOTE | 2020-02-27 00:10 | NUR ---
patient requested Ativan to help her relax so she could get some sleep, administered per request. Physical assessment done. Bruise on lower back noted, and swelling in left forearm noted, picture taken and placed in chart. [place] was effective, no complaints of pain at this time. Addendum: 02/29/20 at 0126 by TAYLOR NELSON RN wrong time 02/27 10
[~2020-02-27 14:49] MED LIST changes: +ACET-73 PO; -AMLO10TA2 PO; +AMLO10TA7 PO; -LOSA100T15 PO; +LOSA100T31 PO; -SIMV10TA6 PO; +SIMV10TA98 PO; -ZOLP5TAB2 PO; +ZOLP5TAB8 PO
[2020-02-27] MEDS ORDERED: ACET-2154 PO (16:05)
[2020-02-27 16:09] VITALS: BP 118/42
[2020-02-27] MEDS ORDERED: AMLO5TAB9 PO (16:29)
[2020-02-27] MEDS ORDERED: LORA-259 PO (16:29)
[2020-02-27] MEDS ORDERED: ONDA-104 IV (16:29)
[2020-02-27] MEDS ORDERED: MAGN400O6 PO (16:29)
[2020-02-27] MEDS ORDERED: PANT40TA4 IVP (16:29)
[2020-02-27] MEDS ORDERED: CELE200C PO (16:31)
[2020-02-27] MEDS ORDERED: LINA290C PO (16:31)
[2020-02-27] MEDS ORDERED: ESCI20TA PO (16:31)
[2020-02-27] MEDS ORDERED: LOSA100T31 PO (16:34)
[2020-02-27] MEDS ORDERED: ROSU5TAB13 PO (16:34)
[2020-02-27] MEDS ORDERED: MAG355OR18 PO (16:45)
[2020-02-27] MEDS ORDERED: ACETAMINOPHEN 325 MG TABLET PO PRN (17:00)
[2020-02-27] MEDS ORDERED: ZOLPIDEM 5 MG TABLET PO PRN (17:00)
[2020-02-27] MEDS ORDERED: MAG HYDROX/AL HYDROX/SIMETH 30 ML LIQUID UDC PO PRN (17:00)
--- NOTE | 2020-02-27 18:40 | NUR ---
Admitted an 79 years old female from [facility]. Patient is AAO x 3-4, able to express needs. Vital signs stable for patient. Denied any pain upon assessment. IV site on Right AC with 2 lumens intact and patent. Medications verified and reconciled by admitting SERVICES REP. Dr. Saucedo also aware of patient's admission. All other needs attended, safety measures in place, call light left at bed side and will continue with care.
[2020-02-27] MEDS ORDERED: INSULIN REGULAR, HUMAN 300 UNIT/3 ML VIAL SQ PRN (19:30)
[2020-02-27] MEDS ORDERED: DEXTROSE 50% 50 ML DISP.SYRIN IV PRN (19:30)
--- NOTE | 2020-02-27 19:35 | NUR ---
End of shift endorsed to PM nurse.
--- NOTE | 2020-02-27 20:00 | NUR ---
Received patient lying in bed watching TV. Patient is AAO x 3-4, able to make needs. Vital signs stable. No signs and symptoms of distress noted, no SOB noted. Denied any pain at this time. IV site on Right AC with 2 lumens flushed, intact and patent. Safety measures in place, call light and all personal items within patient reach. Will continu to monitor.
[2020-02-27 20:53] VITALS: BP 136/58
[2020-02-27] MEDS: HYDROCODONE/APAP 5-325MG TABLET PO PRN (21:57)
[2020-02-27] MEDS: SIMVASTATIN 10 MG TABLET PO SCH (21:58)
[2020-02-27] MEDS: PRAMIPEXOLE 0.25 MG TABLET PO SCH (21:58)
[2020-02-27] MEDS: BLOOD SUGAR DIAGNOSTIC 1 EACH STRIP VI SCH (21:58)
[2020-02-27] MEDS ORDERED: MEROPENEM 1 G VIAL IV SCH (22:00)
--- NOTE | 2020-02-27 22:00 | NUR ---
patient is compliant with medication, all due medication administered. Complaint of pain 7/10 pain right rib, administered [place]. All needs attended. Patient is kept clean and comfortable.Safety measures maintained.
[2020-02-28] MEDS: LORAZEPAM 1 MG TABLET PO PRN ×2 (00:05→22:35)
[2020-02-28 04:50] VITALS: BP 136/57
--- NOTE | 2020-02-28 04:59 | NUR ---
Patient slept through the night. No significant events to report. Patients vitals are WNL, no signs and symptoms of distress noted. no s/s of hypo/hyperglycemia. Safety measures in place, bed locked lowered to lowest position, x2 rails bed alarm on and call light and all personal items within patient reach. All needs attended to.Will endorse report to next shift, continue plan of care.
[2020-02-28] MEDS: BLOOD SUGAR DIAGNOSTIC 1 EACH STRIP VI SCH ×4 (06:23→20:56)
[2020-02-28] MEDS ORDERED: CELECOXIB 200 MG CAPSULE PO SCH (09:00)
[2020-02-28] MEDS ORDERED: ESCITALOPRAM OXALATE 10 MG TABLET PO SCH (09:00)
[2020-02-28] MEDS ORDERED: Medication Not On Formulary EA (Linaclotide (Linzess) 290 MCG) PO SCH (09:00)
[2020-02-28 09:04] VITALS: BP 120/54
[2020-02-28] MEDS: PANTOPRAZOLE SODIUM 40 MG TABLET.DR PO SCH (09:40)
[2020-02-28] MEDS: ALLOPURINOL 300 MG TABLET PO SCH (09:40)
[2020-02-28] MEDS: ESCITALOPRAM OXALATE 10 MG TABLET PO SCH (09:41)
[2020-02-28] MEDS: LOSARTAN POTASSIUM 50 MG TABLET PO SCH (09:42)
[2020-02-28] MEDS: AMLODIPINE 10 MG TABLET PO SCH (09:43)
[2020-02-28] MEDS: DOCUSATE SODIUM 100 MG CAPSULE PO PRN (12:27)
[2020-02-28] MEDS: HYDROCODONE/APAP 5-325MG TABLET PO PRN ×2 (13:13→20:54)
[2020-02-28 16:03] VITALS: BP 117/53
--- NOTE | 2020-02-28 19:45 | NUR ---
Received patient resting in bed watching TV. Patient is AAO x 4, able to make needs. Vital signs stable. No signs and symptoms of distress noted, no SOB noted. Denied any pain at this time. IV site on Right AC with 2 lumens flushed, intact and patent. Safety measures in place, call light and all personal items within patient reach. Will continue to monitor.
[2020-02-28] MEDS ORDERED: MIRALAX 17 GM POWD.PACK PO PRN (20:15)
[2020-02-28 20:19] VITALS: BP 114/50
[2020-02-28] MEDS: PRAMIPEXOLE 0.25 MG TABLET PO SCH (20:53)
[2020-02-28] MEDS: SENNOSIDES 1 TABLET PO SCH (20:53)
[2020-02-28] MEDS: SIMVASTATIN 10 MG TABLET PO SCH (20:54)
--- NOTE | 2020-02-28 21:00 | NUR ---
Patient is compliant with medication, all due medication administered. Complaint of pain 7/10 pain right rib, administered [place]. Accucheck BS 121, no coverage. No s/s of hypo/hyperglycemia noted. Assisted patient to the bathroom, BRP with walker and 1 person standby assist. All needs attended. Patient is kept clean and comfortable. Safety measures maintained. all personal items and call light within patient reach.
--- NOTE | 2020-02-28 22:35 | NUR ---
Patient requested Ativan, administered. Will continue to monitor through the night.
--- NOTE | 2020-02-29 06:11 | NUR ---
Patient slept through the night. No significant events to report. Patients vitals are WNL, no signs and symptoms of distress noted. no s/s of hypo/hyperglycemia, blood sugar this morning 99. Safety measures in place, bed locked lowered to lowest position, x2 rails bed alarm on and call light and all personal items within patient reach. All needs attended to.Will endorse report to next shift, continue plan of care.
[2020-02-29 06:21] LABS: BASOPHILS % (AUTO) 0.7 % (0.0-2.0); EOSINOPHILS # (AUTO) 0.3 K/uL (0.0-0.7); EOSINOPHILS % (AUTO) 5.1 % (0.0-7.0); HEMATOCRIT 25.1 % (31.2-41.9); HEMOGLOBIN 8.5 g/dL (10.9-14.3); LYMPHOCYTES # (AUTO) 1.7 K/uL (20.0-40.0); LYMPHOCYTES % (AUTO) 26.8 % (20.5-51.5); MEAN CORPUSCULAR HEMOGLOBIN 31.7 uug (24.7-32.8); MEAN CORPUSCULAR HGB CONC 34 g/dL (32.3-35.6); MEAN CORPUSCULAR VOLUME 93.9 fL (75.5-95.3); MONOCYTES # (AUTO) 0.5 K/uL (2.0-10.0); MONOCYTES % (AUTO) 8.4 % (0.0-11.0); NEUTROPHILS # (AUTO) 3.8 K/uL (1.8-8.9); PLATELET COUNT (AUTO) 165 K/uL (179-408); RED BLOOD CELL COUNT(AUTO) 2.68 MIL/uL (3.63-4.92); WHITE BLOOD COUNT (AUTO) 6.5 K/uL (3.8-11.8)
[2020-02-29 06:31] LABS: BILIRUBIN,TOTAL 0.4 mg/dL (0.2-1.0); CREATININE 1.1 mg/dL (0.6-1.3); MAGNESIUM 2.1 mg/dL (1.8-2.4); PHOSPHOROUS 3.1 mg/dL (2.5-4.9); TOTAL PROTEIN, SERUM 5.4 g/dL (6.4-8.2)
[2020-02-29] MEDS: BLOOD SUGAR DIAGNOSTIC 1 EACH STRIP VI SCH ×2 (06:31→11:52)
[2020-02-29 06:34] VITALS: BP 120/62
[2020-02-29 08:00] VITALS: BP 100/55
[2020-02-29] MEDS: PANTOPRAZOLE SODIUM 40 MG TABLET.DR PO SCH (08:24)
[2020-02-29] MEDS: ESCITALOPRAM OXALATE 10 MG TABLET PO SCH (08:24)
[2020-02-29] MEDS: ALLOPURINOL 300 MG TABLET PO SCH (08:24)
[2020-02-29] MEDS: HYDROCODONE/APAP 5-325MG TABLET PO PRN ×3 (08:31→20:45)
[2020-02-29] MEDS: AMLODIPINE 10 MG TABLET PO SCH (08:32)
[2020-02-29] MEDS: LOSARTAN POTASSIUM 50 MG TABLET PO SCH (08:32)
--- NOTE | 2020-02-29 09:45 | NUR ---
Patient alert, oriented x 4, not in any form of distress, on room air. Due medications administered and tolerated well. Patient complained of pain and given PRN pain medication as ordered with noted relief. Assisted with her needs promptly. Call light and frequently used items placed within patient's reach. Safety measures maintained.
--- NOTE | 2020-02-29 12:40 | NUR ---
Patient seen by Dr. Saucedo, update given to MD and MD ordered lidocaine patch 5% topically on right lateral chest daily and meloxicam 15mg daily. Patient also seen by Dr. Robbins, update given and MD ordered to discontinue Accu-checks.
[2020-02-29] MEDS: MELOXICAM 7.5 MG TABLET PO SCH (13:00)
[2020-02-29] MEDS: LIDOCAINE 5% PATCH TD SCH (13:09)
[2020-02-29 15:50] VITALS: BP 95/41
[2020-02-29 20:00] VITALS: BP 121/59
[2020-02-29] MEDS: SENNOSIDES 1 TABLET PO SCH (20:41)
[2020-02-29] MEDS: DOCUSATE SODIUM 100 MG CAPSULE PO PRN (20:41)
[2020-02-29] MEDS: PRAMIPEXOLE 0.25 MG TABLET PO SCH (20:41)
[2020-02-29] MEDS: SIMVASTATIN 10 MG TABLET PO SCH (20:41)
--- NOTE | 2020-02-29 21:00 | NUR ---
Patient alert, oriented x 4, not in any form of distress, on room air. Due medications administered and tolerated well. Patient complained of pain and given PRN [place] administered with noted relief. Assisted with her needs promptly. Call light and frequently used items placed within patient's reach. Safety measures maintained. Continue to monitor through the night.
[2020-03-01] MEDS: LORAZEPAM 1 MG TABLET PO PRN (00:04)
--- NOTE | 2020-03-01 00:05 | NUR ---
Patient requested Ativan, administered. Administered PRN [place] and gave patient warm prune juice to help assist with bowel movement, no BM for +4 days
[2020-03-01 04:00] VITALS: BP 114/48
--- NOTE | 2020-03-01 06:18 | NUR ---
Patient slept through the night. No significant events to report. Patients vitals are WNL, no signs and symptoms of distress noted. All needs attended to promptly. Kept comfortable. Assisted patient to the bathroom, stand by assit with walker. No bowel movement. Safety measures in place, bed locked lowered to lowest position, x2 rails bed alarm on and call light and all personal items within patient reach. Will endorse report to next shift, continue plan of care.
[2020-03-01 06:57] LABS: BASOPHILS % (AUTO) 0.4 % (0.0-2.0); EOSINOPHILS # (AUTO) 0.4 K/uL (0.0-0.7); EOSINOPHILS % (AUTO) 4.6 % (0.0-7.0); HEMATOCRIT 25.1 % (31.2-41.9); HEMOGLOBIN 8.4 g/dL (10.9-14.3); LYMPHOCYTES # (AUTO) 1.7 K/uL (20.0-40.0); LYMPHOCYTES % (AUTO) 20.4 % (20.5-51.5); MEAN CORPUSCULAR HEMOGLOBIN 31.7 uug (24.7-32.8); MEAN CORPUSCULAR HGB CONC 34 g/dL (32.3-35.6); MEAN CORPUSCULAR VOLUME 94.4 fL (75.5-95.3); MONOCYTES # (AUTO) 0.7 K/uL (2.0-10.0); MONOCYTES % (AUTO) 8.8 % (0.0-11.0); NEUTROPHILS # (AUTO) 5.3 K/uL (1.8-8.9); NEUTROPHILS % (AUTO) 65.8 % (38.5-71.5); PLATELET COUNT (AUTO) 167 K/uL (179-408); RED BLOOD CELL COUNT(AUTO) 2.66 MIL/uL (3.63-4.92); THYROID STIMULATING HORMONE 2.911 mIU/mL (0.358-3.740); WHITE BLOOD COUNT (AUTO) 8.1 K/uL (3.8-11.8)
[2020-03-01 07:17] LABS: BILIRUBIN,TOTAL 0.4 mg/dL (0.2-1.0); PHOSPHOROUS 3.5 mg/dL (2.5-4.9); POTASSIUM 4.4 mmol/L (3.5-5.1); TOTAL PROTEIN, SERUM 5.5 g/dL (6.4-8.2)
[2020-03-01 08:32] VITALS: BP 128/55
[2020-03-01] MEDS: PANTOPRAZOLE SODIUM 40 MG TABLET.DR PO SCH (08:35)
[2020-03-01] MEDS: LOSARTAN POTASSIUM 50 MG TABLET PO SCH (08:36)
[2020-03-01] MEDS: MELOXICAM 7.5 MG TABLET PO SCH (08:37)
[2020-03-01] MEDS: ESCITALOPRAM OXALATE 10 MG TABLET PO SCH (08:37)
[2020-03-01] MEDS: FERROUS SULFATE SLOW RELEASE 45 MG (ELEMENTAL) TABEC PO SCH (08:37)
[2020-03-01] MEDS: ALLOPURINOL 300 MG TABLET PO SCH (08:38)
[2020-03-01] MEDS: AMLODIPINE 10 MG TABLET PO SCH (08:38)
--- NOTE | 2020-03-01 13:07 | NUR ---
INDIVIDUALIZED PLAN OF CARE
[2020-03-01] MEDS: LIDOCAINE 5% PATCH TD SCH (13:24)
[2020-03-01] MEDS: MAGNESIUM CITRATE 296 ML BOTTLE PO PRN (14:00)
[2020-03-01] MEDS: BISACODYL 10 MG SUPP.RECT RC ONE ×2 (16:06→16:37)
[2020-03-01 16:41] VITALS: BP 130/59
--- NOTE | 2020-03-01 19:35 | NUR ---
Sleeping during initial rounds. No s/s of pain or discomforts noted. No s/s of respiratory distress. Safety measures and fall prevention maintained. Continue care as planned.
[2020-03-01 19:59] VITALS: BP 126/53
[2020-03-01] MEDS: PRAMIPEXOLE 0.25 MG TABLET PO SCH (20:35)
[2020-03-01] MEDS: SENNOSIDES 1 TABLET PO SCH (20:35)
[2020-03-01] MEDS: SIMVASTATIN 10 MG TABLET PO SCH (20:36)
[2020-03-01] MEDS ORDERED: ONDANSETRON HCL 4 MG TABLET PO PRN (22:45)
--- NOTE | 2020-03-01 22:53 | NUR ---
Have nausea and vomiting, MD made aware with new order of Zofran x 1, given. Will monitor. Offered ice chips for now.
[2020-03-02 04:40] VITALS: BP 114/49
--- NOTE | 2020-03-02 05:52 | NUR ---
Shift End Report: VS stable. Complaint of nausea and vomiting x 1, relieved by Zofran as ordered. No further complaint presented. Slept in between care. No fall/injury. All needs attended and met. Continue current rehab plan of care.
[2020-03-02] MEDS: LOSARTAN POTASSIUM 50 MG TABLET PO SCH (09:00)
[2020-03-02] MEDS: AMLODIPINE 10 MG TABLET PO SCH (09:00)
[2020-03-02 09:23] VITALS: BP 110/46
[2020-03-02] MEDS: PANTOPRAZOLE SODIUM 40 MG TABLET.DR PO SCH (09:36)
[2020-03-02] MEDS: MELOXICAM 7.5 MG TABLET PO SCH (09:36)
[2020-03-02] MEDS: ALLOPURINOL 300 MG TABLET PO SCH (09:36)
[2020-03-02] MEDS: ESCITALOPRAM OXALATE 10 MG TABLET PO SCH (09:36)
[2020-03-02] MEDS: FERROUS SULFATE SLOW RELEASE 45 MG (ELEMENTAL) TABEC PO SCH (09:38)
[2020-03-02] MEDS ORDERED: FERROUS GLUCONATE 324 MG TABLET PO SCH (09:45)
[2020-03-02] MEDS: HYDROCODONE/APAP 5-325MG TABLET PO PRN ×3 (09:49→22:26)
[2020-03-02] MEDS: LIDOCAINE 5% PATCH TD SCH (14:21)
--- NOTE | 2020-03-02 14:34 | NUR ---
Patient complained of nausea, informed Dr. Robbins and ordered Zofran 4mg PO PRN Q6 hrs.
[2020-03-02] MEDS: ONDANSETRON HCL 4 MG TABLET PO PRN (14:56)
[2020-03-02 16:06] VITALS: BP 115/47
--- NOTE | 2020-03-02 18:00 | NUR ---
Patient remains alert, oriented x 4, not in any form of distress, on room air. Patient denies any pain at this time. Patient complained of feeling needles on her right hand, informed Dr. Robbins with no order at this time. Needs attended to promptly. No complain of nausea at this time. Call light placed within patient's reach. Safety measures maintained.
[2020-03-02 20:06] VITALS: BP 110/43
[2020-03-02] MEDS: PRAMIPEXOLE 0.25 MG TABLET PO SCH (20:20)
[2020-03-02] MEDS: SENNOSIDES 1 TABLET PO SCH (20:21)
--- NOTE | 2020-03-02 20:37 | NUR ---
UA, UA c/s collected and sent to lab as ordered.
[2020-03-02 20:48] LABS: *BILIRUBIN,URIN NEGATIVE (NEGATIVE); *CLARITY,URINE CLEAR (CLEAR); *COLOR,URINE YELLOW (YELLOW); *KETONES,URINE NEGATIVE (NEGATIVE); *UROBILINOGEN,URINE 0.2 E.U./dl (NORMAL); LEUKOCYTE ESTERASE ,URINE 1+ (NEGATIVE); NITRITE, URINE NEGATIVE (NEGATIVE); PH,URINE 6.5 (5.0-8.0); UGLUCOSE NEGATIVE (NEGATIVE)
[2020-03-02 20:49] LABS: *BLOOD, URINE TRACE LYSED (NEGATIVE)
[2020-03-02 21:50] LABS: BACTERIA,URINE FEW /HPF (NONE SEEN); RBC,URINE 0-3 /HPF (0-3); SQUAMOUS EPITHELIAL CELL,UR FEW /HPF (NONE SEEN)
--- NOTE | 2020-03-02 22:29 | NUR ---
Complaint of right rib pain in scale of 9/10. Will monitor.
[2020-03-03] MEDS: LORAZEPAM 1 MG TABLET PO PRN (01:27)
[2020-03-03 04:00] VITALS: BP 117/51
--- NOTE | 2020-03-03 05:35 | NUR ---
Shift End Report: Slept in between care. medicated once for right rib pain with relief. No further complaint presented. No significant event reported all night. VS stable. Continue current rehab plan of care.
[2020-03-03 05:49] LABS: BASOPHILS % (AUTO) 0.7 % (0.0-2.0); EOSINOPHILS # (AUTO) 0.2 K/uL (0.0-0.7); HEMATOCRIT 24.2 % (31.2-41.9); HEMOGLOBIN 7.9 g/dL (10.9-14.3); LYMPHOCYTES # (AUTO) 1.5 K/uL (20.0-40.0); LYMPHOCYTES % (AUTO) 20.7 % (20.5-51.5); MEAN CORPUSCULAR HEMOGLOBIN 30.7 uug (24.7-32.8); MEAN CORPUSCULAR HGB CONC 33 g/dL (32.3-35.6); MONOCYTES # (AUTO) 0.6 K/uL (2.0-10.0); MONOCYTES % (AUTO) 8.9 % (0.0-11.0); NEUTROPHILS # (AUTO) 4.8 K/uL (1.8-8.9); NEUTROPHILS % (AUTO) 66.7 % (38.5-71.5); PLATELET COUNT (AUTO) 187 K/uL (179-408); RED BLOOD CELL COUNT(AUTO) 2.58 MIL/uL (3.63-4.92); WHITE BLOOD COUNT (AUTO) 7.2 K/uL (3.8-11.8)
[2020-03-03 06:02] LABS: CREATININE 1.2 mg/dL (0.6-1.3); MAGNESIUM 2.8 mg/dL (1.8-2.4); PHOSPHOROUS 3.8 mg/dL (2.5-4.9); POTASSIUM 4.2 mmol/L (3.5-5.1)
[2020-03-03] MEDS ORDERED: GLIMEPIRIDE 2 MG TABLET PO SCH (08:00)
[2020-03-03] MEDS: ESCITALOPRAM OXALATE 10 MG TABLET PO SCH (08:08)
[2020-03-03] MEDS: PANTOPRAZOLE SODIUM 40 MG TABLET.DR PO SCH (08:08)
[2020-03-03] MEDS: ALLOPURINOL 300 MG TABLET PO SCH (08:08)
[2020-03-03] MEDS: FERROUS SULFATE SLOW RELEASE 45 MG (ELEMENTAL) TABEC PO SCH (08:11)
[2020-03-03] MEDS: LOSARTAN POTASSIUM 50 MG TABLET PO SCH (08:12)
[2020-03-03] MEDS: AMLODIPINE 10 MG TABLET PO SCH (08:12)
[2020-03-03 08:14] VITALS: BP 108/54
[2020-03-03] MEDS: OXYCODONE/APAP 5-325 MG TABLET PO PRN ×2 (08:59→20:49)
[2020-03-03] MEDS: LIDOCAINE 5% PATCH TD SCH (12:18)
[2020-03-03] MEDS: ACIDOPHILUS/BULGARICUS CHEW TAB PO SCH ×2 (12:18→20:47)
[2020-03-03] MEDS: CEphaleXIN 500 MG CAPSULE PO SCH (13:35)
--- NOTE | 2020-03-03 14:53 | NUR ---
INTERDISCIPLINARY TEAM CONFERENCE
--- NOTE | 2020-03-03 15:20 | NUR ---
patient is alert, oriented x4, no sob, resp even nonlabored,skin warm and dry to touch, no distress noted, ambulatory, pain is managed with pain medication and with distraction, started on keflex for uti, patient daughter name Bette came over to assistant front office manager and took patient house keys and some other stuff.
[2020-03-03 16:08] VITALS: BP_SYST 110; BP_SYST 135; BP_DIAS 59; BP_DIAS 60
[2020-03-03] MEDS ORDERED: TRIAMCINOLONE ACETONIDE 40 MG/1 ML VIAL IM ONE (17:15)
[2020-03-03] MEDS ORDERED: LIDOCAINE HCL 1% 20 ML VIAL IJ ONE (17:15)
[2020-03-03] MEDS ORDERED: LIDOCAINE HCL-MPF 1% 5 ML VIAL IJ ONE (17:30)
--- NOTE | 2020-03-03 17:46 | NUR ---
kenalog and xylocain administered by dr Saucedo
--- NOTE | 2020-03-03 19:35 | NUR ---
Awake, alert, watching TV during initial rounds. HOB slightly elevated. Denies any pain at this time. Safety measures and fall prevention maintained. Continue care as planned.
[2020-03-03 20:22] VITALS: BP 125/50
[2020-03-03] MEDS: PRAMIPEXOLE 0.25 MG TABLET PO SCH (20:47)
[2020-03-03] MEDS: SENNOSIDES 1 TABLET PO SCH (20:47)
[2020-03-04] MEDS: CEphaleXIN 500 MG CAPSULE PO SCH ×4 (00:09→21:05)
[2020-03-04 05:25] VITALS: BP 115/54
--- NOTE | 2020-03-04 06:10 | NUR ---
Shift End report: Vs stable. Slept late. Medicated once for pain and with relief. Presented multiple simple complaints. All needs attended and met. No significant event reported.
--- NOTE | 2020-03-04 06:48 | NUR ---
Shift End Report: Slept good. No complaint presented all night. All needs attended and met. No fall/injury. No significant event reported. Continue current rehab plan of care.
[2020-03-04 07:30] VITALS: BP 121/55
[2020-03-04] MEDS: ACIDOPHILUS/BULGARICUS CHEW TAB PO SCH ×2 (08:31→20:56)
[2020-03-04] MEDS: OXYCODONE/APAP 5-325 MG TABLET PO PRN ×2 (08:31→18:11)
[2020-03-04] MEDS: FERROUS SULFATE SLOW RELEASE 45 MG (ELEMENTAL) TABEC PO SCH (08:32)
[2020-03-04] MEDS: AMLODIPINE 10 MG TABLET PO SCH (08:32)
[2020-03-04] MEDS: ALLOPURINOL 300 MG TABLET PO SCH (08:32)
[2020-03-04] MEDS: LOSARTAN POTASSIUM 50 MG TABLET PO SCH (08:33)
[2020-03-04] MEDS: PANTOPRAZOLE SODIUM 40 MG TABLET.DR PO SCH (08:33)
[2020-03-04] MEDS: ESCITALOPRAM OXALATE 10 MG TABLET PO SCH (08:33)
--- NOTE | 2020-03-04 11:15 | NUR ---
Received patient in bed, Pt. is AAO x 4, no acute distress noted. Patient able to express needs. Vital signs stable. Due morning medications administered as ordered and scheduled. Patient complained of pain on right ribcage are especially when moving. Percocet 5/325 mg 1 tab Po administered. patient ambulatory with a walker and one person assist. Skin kept clean and dry, made comfortable, safety needs in place and will continue with care.
[2020-03-04] MEDS: LIDOCAINE 5% PATCH TD SCH (13:44)
[2020-03-04] MEDS: ONDANSETRON HCL 4 MG TABLET PO PRN (13:51)
[2020-03-04] MEDS: DOCUSATE SODIUM 100 MG CAPSULE PO PRN (15:50)
[2020-03-04 16:00] VITALS: BP 110/47
--- NOTE | 2020-03-04 18:23 | NUR ---
Patient stating feeling better with nausea. Percocet 5/325mg administered for pain and tolerated. NO SOB noted. All other needs attended, safety needs in place and will continue with care.
[2020-03-04 20:01] VITALS: BP 113/46
[2020-03-04] MEDS: PRAMIPEXOLE 0.25 MG TABLET PO SCH (20:56)
[2020-03-04] MEDS: SENNOSIDES 1 TABLET PO SCH (20:56)
--- NOTE | 2020-03-04 21:35 | NUR ---
awake alert and oriented x4. watching TV at beginning of shift. needs attended. VSS. Kept comfortable. Denies any pain nor any discomfort. Continent of bowel and bladder. BM 03/02. Tolerated po meds well. Will monitor patient.
[2020-03-05] MEDS: LORAZEPAM 1 MG TABLET PO PRN (00:22)
[2020-03-05 05:40] LABS: BASOPHILS % (AUTO) 0.6 % (0.0-2.0); EOSINOPHILS # (AUTO) 0.2 K/uL (0.0-0.7); HEMATOCRIT 24.5 % (31.2-41.9); LYMPHOCYTES # (AUTO) 1.7 K/uL (20.0-40.0); LYMPHOCYTES % (AUTO) 24.4 % (20.5-51.5); MEAN CORPUSCULAR HEMOGLOBIN 30.8 uug (24.7-32.8); MEAN CORPUSCULAR HGB CONC 33 g/dL (32.3-35.6); MEAN CORPUSCULAR VOLUME 94.8 fL (75.5-95.3); MONOCYTES # (AUTO) 0.5 K/uL (2.0-10.0); MONOCYTES % (AUTO) 7.7 % (0.0-11.0); NEUTROPHILS # (AUTO) 4.4 K/uL (1.8-8.9); NEUTROPHILS % (AUTO) 64.3 % (38.5-71.5); PLATELET COUNT (AUTO) 214 K/uL (179-408); RED BLOOD CELL COUNT(AUTO) 2.58 MIL/uL (3.63-4.92); WHITE BLOOD COUNT (AUTO) 6.9 K/uL (3.8-11.8)
[2020-03-05] MEDS: CEphaleXIN 500 MG CAPSULE PO SCH ×3 (05:40→21:23)
[2020-03-05 06:02] LABS: BILIRUBIN,TOTAL 0.2 mg/dL (0.2-1.0); MAGNESIUM 2.6 mg/dL (1.8-2.4); PHOSPHOROUS 3.5 mg/dL (2.5-4.9); POTASSIUM 4.4 mmol/L (3.5-5.1); TOTAL PROTEIN, SERUM 5.3 g/dL (6.4-8.2)
[2020-03-05 06:27] VITALS: BP 102/42
[2020-03-05] MEDS ORDERED: MAGNESIUM CITRATE 296 ML BOTTLE PO PRN (06:30)
--- NOTE | 2020-03-05 06:36 | NUR ---
End of shift notes: Slept most of the shift. No acute distress noted. VSS. Needs attended. Kept comfortable. Voiding freely.
--- NOTE | 2020-03-05 08:00 | NUR ---
PT is in no acute distress. Pt alert and oriented x 4. Applied ice on right rib pain. PT oob in chair. Call light is within reach.
[2020-03-05] MEDS: ACIDOPHILUS/BULGARICUS CHEW TAB PO SCH ×2 (08:12→20:37)
[2020-03-05] MEDS: ESCITALOPRAM OXALATE 10 MG TABLET PO SCH (08:12)
[2020-03-05] MEDS: ALLOPURINOL 300 MG TABLET PO SCH (08:15)
[2020-03-05] MEDS: AMLODIPINE 10 MG TABLET PO SCH (08:21)
[2020-03-05] MEDS: PANTOPRAZOLE SODIUM 40 MG TABLET.DR PO SCH (08:21)
[2020-03-05] MEDS: LOSARTAN POTASSIUM 50 MG TABLET PO SCH (08:21)
[2020-03-05] MEDS: FERROUS SULFATE SLOW RELEASE 45 MG (ELEMENTAL) TABEC PO SCH (08:40)
[2020-03-05] MEDS: OXYCODONE/APAP 5-325 MG TABLET PO PRN ×2 (09:58→23:53)
[2020-03-05] MEDS ORDERED: BISACODYL 10 MG SUPP.RECT RC PRN (11:30)
[2020-03-05 12:10] VITALS: BP 95/53
[2020-03-05] MEDS: LIDOCAINE 5% PATCH TD SCH (13:23)
--- NOTE | 2020-03-05 18:00 | NUR ---
Pt had minimal result from suppository for her constipation got another order for additional suppository per pts request. Sent stool for ob as ordered. Got order for hemorrhoids suppository as well. Pt is in no acute distress. Call light is within reach.
[2020-03-05] MEDS ORDERED: BISACODYL 10 MG SUPP.RECT RC ONE (18:40)
[2020-03-05 18:52] LABS: *OCCULT BLOOD STOOL POSITIVE (NEGATIVE)
[2020-03-05 19:45] VITALS: BP 125/50
--- NOTE | 2020-03-05 19:54 | NUR ---
RECEIVED PT AWAKE, ALERT AND ORIENTEDX4. PT IN NO ACUTE DISTRESS. ASSISTED PT INTO THE BATHROOM. PT HAD 1 BOWEL MOVEMENT. THERE'S BRUISE ON MEDIAL LOWER BACK OF THE PT NOTED WHICH DAYSAZFT NURSE ENDORSED. PT ASKING FOR HER HEMORRHOID MEDICATION. TOLD HER THAT I WILL GIVE IT SCHEDULED. SAFETY AND COMFORT PROVIDED. WILL CONTINUE TO MONITOR.
[2020-03-05] MEDS: PRAMIPEXOLE 0.25 MG TABLET PO SCH (20:37)
[2020-03-05] MEDS: SENNOSIDES 1 TABLET PO SCH (20:37)
[2020-03-05] MEDS: PHENYLEPHRINE/SHARK LIVER/CCB 1 EACH SUPP.RECT RC SCH (20:38)
--- NOTE | 2020-03-06 00:04 | NUR ---
Percocet given at 2353h.for 8/10 pain scale. Pt vital signs wnl.Assisted the pt to the bathroom. Pt had another bowel movement. Will continue to monitor.
--- NOTE | 2020-03-06 00:59 | NUR ---
Assessed pt pain. Pt said it helps. Pt gets back to sleep. Will continue to monitor.
[2020-03-06 04:30] VITALS: BP 123/59
[2020-03-06] MEDS: CEphaleXIN 500 MG CAPSULE PO SCH ×3 (06:00→21:12)
--- NOTE | 2020-03-06 06:08 | NUR ---
PT SLEPT COMFORTABLY AND INTERMITTENTLY. WAKING UP JUST TO GO TO THE BATHROOM. ASSISTED THE PT TO THE RESTROOM. PT IN NO ACUTE DISTRESS. PRESCRIBED MEDICATION GIVEN AND PT TOLERATED IT WELL. PT HAD SEVERAL BOWEL MOVEMENT . OBSERVED PT STILL HAS PAIN ON HER RIGHT RIB. PRN DILAUDID GIVEN AND PT TOLERATED IT WELL. SAFETY AND COMFORT PROVIDED. ALL NEEDS ARE MET.WILL ENDORSE TO INCOMING NURSE FOR CONTINUITY OF CARE.
[2020-03-06 08:00] VITALS: BP 137/55
--- NOTE | 2020-03-06 08:00 | NUR ---
Pt is in no acute distress. Applied ice on right rib fx to assist with pain management. Explained to pt importance of premedication for pain prior to physical therapy. Pt agreeable with plan. Call light is within reach.
[2020-03-06] MEDS: LOSARTAN POTASSIUM 50 MG TABLET PO SCH (08:11)
[2020-03-06] MEDS: ESCITALOPRAM OXALATE 10 MG TABLET PO SCH (08:11)
[2020-03-06] MEDS: ALLOPURINOL 300 MG TABLET PO SCH (08:11)
[2020-03-06] MEDS: PANTOPRAZOLE SODIUM 40 MG TABLET.DR PO SCH (08:11)
[2020-03-06] MEDS: ACIDOPHILUS/BULGARICUS CHEW TAB PO SCH ×2 (08:11→21:12)
[2020-03-06] MEDS: AMLODIPINE 10 MG TABLET PO SCH (08:11)
[2020-03-06] MEDS: FERROUS SULFATE SLOW RELEASE 45 MG (ELEMENTAL) TABEC PO SCH (08:13)
[2020-03-06] MEDS: PHENYLEPHRINE/SHARK LIVER/CCB 1 EACH SUPP.RECT RC SCH ×2 (08:13→21:12)
[2020-03-06] MEDS: OXYCODONE/APAP 5-325 MG TABLET PO PRN (10:09)
[2020-03-06 13:42] LABS: BASOPHILS # (AUTO) 0.1 K/uL (0.0-8.0); BASOPHILS % (AUTO) 0.9 % (0.0-2.0); EOSINOPHILS # (AUTO) 0.2 K/uL (0.0-0.7); EOSINOPHILS % (AUTO) 2.8 % (0.0-7.0); HEMOGLOBIN 8.3 g/dL (10.9-14.3); LYMPHOCYTES # (AUTO) 1.7 K/uL (20.0-40.0); LYMPHOCYTES % (AUTO) 25.9 % (20.5-51.5); MEAN CORPUSCULAR HGB CONC 32 g/dL (32.3-35.6); MEAN CORPUSCULAR VOLUME 93.4 fL (75.5-95.3); MONOCYTES # (AUTO) 0.6 K/uL (2.0-10.0); MONOCYTES % (AUTO) 9.2 % (0.0-11.0); NEUTROPHILS # (AUTO) 4.1 K/uL (1.8-8.9); NEUTROPHILS % (AUTO) 61.2 % (38.5-71.5); PLATELET COUNT (AUTO) 236 K/uL (179-408); RED BLOOD CELL COUNT(AUTO) 2.78 MIL/uL (3.63-4.92); WHITE BLOOD COUNT (AUTO) 6.8 K/uL (3.8-11.8)
[2020-03-06] MEDS: LIDOCAINE 5% PATCH TD SCH (14:04)
--- NOTE | 2020-03-06 15:00 | NUR ---
Premedication prior to therapy effective. [place] from PT stated that pt got dizzy during physical therapy. Notified DR shay of episode got order to recheck cbc for h/h level today and stopped percocet and changed pain medications to NORCO.
[2020-03-06 16:26] VITALS: BP 111/46
--- NOTE | 2020-03-06 18:00 | NUR ---
Dr shay here to see pt aware of current H/H. Pt is in no acute distress.
[2020-03-06] MEDS: HYDROCODONE/APAP 5-325MG TABLET PO PRN (19:48)
--- NOTE | 2020-03-06 20:00 | NUR ---
RECEIVED PATIENT AWAKE IN BED. A/O X4. PATIENT WAS COMPLAINING ABOUT PAIN ON RIGHT SIDE RIBS, GUARDING AND HOLDING AREA. GIVEN NORCO 1 TAB PO PRN FOR PAIN. VS WNL. NO RESP. DISTRESS NOTED. CALL LIGHT IN REACH. ALL NEEDS ATTENDED. WILL CONTINUE TO MONITOR AND ASSESS.
[2020-03-06 20:34] VITALS: BP 128/54
[2020-03-06] MEDS: SENNOSIDES 1 TABLET PO SCH (21:12)
[2020-03-06] MEDS: PRAMIPEXOLE 0.25 MG TABLET PO SCH (21:12)
[2020-03-06] MEDS: LORAZEPAM 1 MG TABLET PO PRN (21:28)
[2020-03-07 04:40] VITALS: BP 127/58
[2020-03-07] MEDS: CEphaleXIN 500 MG CAPSULE PO SCH ×3 (06:07→21:58)
[2020-03-07 07:30] VITALS: BP 121/64
[2020-03-07] MEDS: LOSARTAN POTASSIUM 50 MG TABLET PO SCH (08:26)
[2020-03-07] MEDS: AMLODIPINE 10 MG TABLET PO SCH (08:27)
[2020-03-07] MEDS: ESCITALOPRAM OXALATE 10 MG TABLET PO SCH (08:27)
[2020-03-07] MEDS: ALLOPURINOL 300 MG TABLET PO SCH (08:28)
[2020-03-07] MEDS: ACIDOPHILUS/BULGARICUS CHEW TAB PO SCH ×2 (08:28→20:41)
[2020-03-07] MEDS: PANTOPRAZOLE SODIUM 40 MG TABLET.DR PO SCH (08:28)
[2020-03-07] MEDS: FERROUS SULFATE SLOW RELEASE 45 MG (ELEMENTAL) TABEC PO SCH (08:30)
[2020-03-07] MEDS: PHENYLEPHRINE/SHARK LIVER/CCB 1 EACH SUPP.RECT RC SCH ×2 (08:30→20:41)
--- NOTE | 2020-03-07 13:00 | NUR ---
Teaching effective on premedication prior to therapy. Pt asked for pain New pain meds NORCO prior to Physical therapy.
[2020-03-07] MEDS: LIDOCAINE 5% PATCH TD SCH (13:18)
[2020-03-07] MEDS: HYDROCODONE/APAP 5-325MG TABLET PO PRN ×2 (13:27→20:49)
[2020-03-07 16:00] VITALS: BP 115/50
--- NOTE | 2020-03-07 18:34 | NUR ---
Pt is in no acute distress. Pt tolerated physical therapy session today without getting dizzy. Call light is within reach.
--- NOTE | 2020-03-07 19:20 | NUR ---
Sleeping during initial rounds. No s/s of pain/discomforts. No s/s of respiratory distress. Safety measures and fall prevention maintained. Continue care as planned.
[2020-03-07 20:14] VITALS: BP 101/52
[2020-03-07] MEDS: PRAMIPEXOLE 0.25 MG TABLET PO SCH (20:40)
[2020-03-07] MEDS: SENNOSIDES 1 TABLET PO SCH (20:40)
[2020-03-07] MEDS: LORAZEPAM 1 MG TABLET PO PRN (21:56)
[2020-03-08 05:02] VITALS: BP 106/49
[2020-03-08 05:04] VITALS: BP 140/65
[2020-03-08] MEDS: CEphaleXIN 500 MG CAPSULE PO SCH ×3 (06:18→22:04)
--- NOTE | 2020-03-08 06:37 | NUR ---
Shift End Report: Vs stable. Medicated once for pain with relief and Ativan once given for sleep with help. All needs attended and met. No fall/injury. No significant event reported all night. Continue current rehab plan of care.
[2020-03-08 07:33] VITALS: BP 129/60
--- NOTE | 2020-03-08 08:00 | NUR ---
received pt. resting in bed alert oriented x4. pt. states she has generalized pain. will assess and provide prescribed pain medication. pt. denies sob/ difficulty breathing. safety measures in place. call light within reach. will continue to monitor pt.
[2020-03-08] MEDS: ESCITALOPRAM OXALATE 10 MG TABLET PO SCH (08:21)
[2020-03-08] MEDS: ALLOPURINOL 300 MG TABLET PO SCH (08:21)
[2020-03-08] MEDS: ACIDOPHILUS/BULGARICUS CHEW TAB PO SCH ×2 (08:21→20:43)
[2020-03-08] MEDS: LOSARTAN POTASSIUM 50 MG TABLET PO SCH (08:22)
[2020-03-08] MEDS: PANTOPRAZOLE SODIUM 40 MG TABLET.DR PO SCH (08:22)
[2020-03-08] MEDS: AMLODIPINE 10 MG TABLET PO SCH (08:22)
[2020-03-08] MEDS: PHENYLEPHRINE/SHARK LIVER/CCB 1 EACH SUPP.RECT RC SCH ×2 (08:22→20:44)
[2020-03-08] MEDS: FERROUS SULFATE SLOW RELEASE 45 MG (ELEMENTAL) TABEC PO SCH (08:23)
[2020-03-08] MEDS: HYDROCODONE/APAP 5-325MG TABLET PO PRN ×2 (09:38→20:52)
[2020-03-08] MEDS: LIDOCAINE 5% PATCH TD SCH (13:12)
[2020-03-08 15:34] VITALS: BP 112/52
--- NOTE | 2020-03-08 19:25 | NUR ---
Awake, busy texting on her cell phone. Denied any pain/discomforts at this time. Lying comfortably in bed. Safety measures and fall prevention maintained. Continue care as planned.
[2020-03-08 20:19] VITALS: BP 110/50
[2020-03-08] MEDS: SENNOSIDES 1 TABLET PO SCH (20:43)
[2020-03-08] MEDS: PRAMIPEXOLE 0.25 MG TABLET PO SCH (20:43)
[2020-03-08] MEDS: LORAZEPAM 1 MG TABLET PO PRN (23:35)
[2020-03-09 04:29] VITALS: BP 112/57
--- NOTE | 2020-03-09 05:42 | NUR ---
Shift End Report: Slept well. Medicated once for right rib pain as needed and ordered with relief. No further complaint presented throughout the night. No fall/injury. All needs attended and met. No significant event report. VS stable. Continue current rehab plan of care.
[2020-03-09] MEDS: CEphaleXIN 500 MG CAPSULE PO SCH ×3 (05:47→21:05)
[2020-03-09 08:00] VITALS: BP 121/52
[2020-03-09] MEDS: ACIDOPHILUS/BULGARICUS CHEW TAB PO SCH ×2 (08:08→20:06)
[2020-03-09] MEDS: ALLOPURINOL 300 MG TABLET PO SCH (08:08)
[2020-03-09] MEDS: PANTOPRAZOLE SODIUM 40 MG TABLET.DR PO SCH (08:09)
[2020-03-09] MEDS: AMLODIPINE 10 MG TABLET PO SCH (08:09)
[2020-03-09] MEDS: ESCITALOPRAM OXALATE 10 MG TABLET PO SCH (08:09)
[2020-03-09] MEDS: FERROUS SULFATE SLOW RELEASE 45 MG (ELEMENTAL) TABEC PO SCH (08:10)
--- NOTE | 2020-03-09 08:30 | NUR ---
Patient awake, alert, oriented x 4, sitting on the side of bed having breakfast, not in any form of distress on room air. She denies any pain or discomfort at this time. Due medications administered and tolerated well. Assisted with her needs. Call light and frequently used items placed within patient's reach. Safety measures maintained.
[2020-03-09] MEDS: LOSARTAN POTASSIUM 50 MG TABLET PO SCH (09:00)
[2020-03-09] MEDS: HYDROCODONE/APAP 5-325MG TABLET PO PRN ×2 (09:43→20:21)
--- NOTE | 2020-03-09 12:30 | NUR ---
Informed Paul Barger DNP regarding CT scan of left knee result, he saw patient and gave no new order at this time and said he will inform ortho to see patient.
[2020-03-09] MEDS: LIDOCAINE 5% PATCH TD SCH (12:34)
[2020-03-09 15:25] VITALS: BP 104/45
--- NOTE | 2020-03-09 20:00 | NUR ---
Patient received into care, sitting up in bed, watching television. Patient is alert/oriented x4 and is verbally responsive. All safety, allergy, and fall precaution measures in place. Call light and personal items are within reach. Will continue to monitor and assess.
[2020-03-09] MEDS: PRAMIPEXOLE 0.25 MG TABLET PO SCH (20:06)
[2020-03-09] MEDS: SENNOSIDES 1 TABLET PO SCH (20:06)
[2020-03-10 04:00] VITALS: BP 118/56
--- NOTE | 2020-03-10 05:09 | NUR ---
Patient slept comfortably throughout night with one episode of verbalized pain addressed with prescribed PO analgesic. VS are WNL and patient is stable. All safety, allergy, fall, and ARU precautions remain in place. Call light and personal items remain within reach.
[2020-03-10] MEDS: CEphaleXIN 500 MG CAPSULE PO SCH (05:31)
[2020-03-10] MEDS: LOSARTAN POTASSIUM 50 MG TABLET PO SCH (08:25)
[2020-03-10] MEDS: AMLODIPINE 10 MG TABLET PO SCH (08:25)
[2020-03-10] MEDS: ALLOPURINOL 300 MG TABLET PO SCH (08:25)
[2020-03-10] MEDS: PANTOPRAZOLE SODIUM 40 MG TABLET.DR PO SCH (08:25)
[2020-03-10] MEDS: ESCITALOPRAM OXALATE 10 MG TABLET PO SCH (08:25)
[2020-03-10] MEDS: ACIDOPHILUS/BULGARICUS CHEW TAB PO SCH ×2 (08:25→21:24)
[2020-03-10] MEDS: FERROUS SULFATE SLOW RELEASE 45 MG (ELEMENTAL) TABEC PO SCH (08:26)
[2020-03-10 08:51] VITALS: BP 130/60
--- NOTE | 2020-03-10 09:00 | NUR ---
Patient awake, alert, oriented x 4, not in any form of distress. No complain of any pain or discomfort. Due medications administered and tolerated well. Needs attended to promptly. Call light and frequently used items placed within patient's reach.
[2020-03-10] MEDS: OXYCODONE/APAP 5-325 MG TABLET PO PRN ×2 (10:22→21:25)
--- NOTE | 2020-03-10 10:52 | NUR ---
Paul Barger DNP in the unit, update given and per DNP he spoke with ortho and said that left knee CT scan result is an old fracture and nothing needed to be done.
--- NOTE | 2020-03-10 12:22 | NUR ---
INTERDISCIPLINARY TEAM CONFERENCE
[2020-03-10] MEDS: LIDOCAINE 5% PATCH TD SCH (13:10)
[2020-03-10] MEDS ORDERED: TRIAMCINOLONE ACETONIDE 40 MG/1 ML VIAL IJ ONE (14:15)
[2020-03-10] MEDS ORDERED: LIDOCAINE HCL 1% 20 ML VIAL IJ ONE (14:15)
--- NOTE | 2020-03-10 14:38 | NUR ---
Patient seen and examined by Dr. Sheryl MD did a left knee intraarticular injection of Kenalog. Patient tolerated the procedure well. No signs of bleeding on injection site. Patient denies any pain or discomfort at this time. Will continue to monitor patient.
[2020-03-10 15:18] VITALS: BP_SYST 133; BP_SYST 98; BP_DIAS 65; BP_DIAS 70
[2020-03-10 20:25] VITALS: BP 114/53
[2020-03-10] MEDS: SENNOSIDES 1 TABLET PO SCH (21:23)
[2020-03-10] MEDS: PRAMIPEXOLE 0.25 MG TABLET PO SCH (21:24)
[2020-03-11] MEDS: LORAZEPAM 1 MG TABLET PO PRN (02:11)
[2020-03-11 04:31] VITALS: BP 121/60
--- NOTE | 2020-03-11 05:47 | NUR ---
Received patient in bed, AAO x4. No acute distress or SOB was noted. Farsi speaking but can communicate in Danish as well. Able to make needs known. On room air. Complained of pain of her right ribs, rated 6/10, Percocet 5-325 mg 1/2 tablet administered and effective. All due medications administered and well tolerated. Requested for Ativan. Physical assessment done. All needs attended promptly. Safety measures maintained. Fall prevention maintained. Bed in lock position, Side rails up x2 for safety. Continue to monitor and will endorse to oncoming nurse accordingly.
[2020-03-11 08:00] VITALS: BP 117/66
[2020-03-11] MEDS: PANTOPRAZOLE SODIUM 40 MG TABLET.DR PO SCH (08:27)
[2020-03-11] MEDS: ALLOPURINOL 300 MG TABLET PO SCH (08:28)
[2020-03-11] MEDS: ESCITALOPRAM OXALATE 10 MG TABLET PO SCH (08:28)
[2020-03-11] MEDS: FERROUS SULFATE SLOW RELEASE 45 MG (ELEMENTAL) TABEC PO SCH (08:28)
[2020-03-11] MEDS: LOSARTAN POTASSIUM 50 MG TABLET PO SCH (08:29)
[2020-03-11] MEDS: ACIDOPHILUS/BULGARICUS CHEW TAB PO SCH ×2 (08:29→20:22)
[2020-03-11] MEDS: AMLODIPINE 10 MG TABLET PO SCH (08:30)
[2020-03-11] MEDS: OXYCODONE/APAP 5-325 MG TABLET PO PRN ×2 (08:42→22:08)
[2020-03-11] MEDS: LIDOCAINE 5% PATCH TD SCH (13:05)
[2020-03-11 15:40] VITALS: BP 119/53
[2020-03-11 20:18] VITALS: BP 104/47
[2020-03-11] MEDS: SENNOSIDES 1 TABLET PO SCH (20:22)
[2020-03-11] MEDS: PRAMIPEXOLE 0.25 MG TABLET PO SCH (20:22)
--- NOTE | 2020-03-11 20:28 | NUR ---
Received patient in bed, Pt. is AAO x 4, no acute distress noted. Denies any pain at this time. Patient able to express needs. Vital signs stable. Due medications administered as ordered and scheduled, Patient compliant. All needs attended to. Safety measure in place. Skin kept clean and dry, made comfortable. Will continue with care through the night.
--- NOTE | 2020-03-11 22:11 | NUR ---
Patient complaint of pain 5/10 in shoulder, administered Percocet. will monitor for effectiveness.
[2020-03-12 06:35] VITALS: BP 109/60
[2020-03-12 08:00] VITALS: BP 119/52
[2020-03-12] MEDS: ESCITALOPRAM OXALATE 10 MG TABLET PO SCH (09:03)
[2020-03-12] MEDS: ALLOPURINOL 300 MG TABLET PO SCH (09:03)
[2020-03-12 09:04] VITALS: BP 119/52
[2020-03-12] MEDS: ACIDOPHILUS/BULGARICUS CHEW TAB PO SCH (09:04)
[2020-03-12] MEDS: PANTOPRAZOLE SODIUM 40 MG TABLET.DR PO SCH (09:04)
[2020-03-12] MEDS: AMLODIPINE 10 MG TABLET PO SCH (09:04)
[2020-03-12] MEDS: LOSARTAN POTASSIUM 50 MG TABLET PO SCH (09:04)
[2020-03-12] MEDS: FERROUS SULFATE SLOW RELEASE 45 MG (ELEMENTAL) TABEC PO SCH (09:06)
--- NOTE | 2020-03-12 09:45 | NUR ---
Received patient in bed, Pt. is AAO x 4, able to express needs; no acute distress or SOB noted. Vital signs stable. Due medications administered as ordered and scheduled. NO complains of pain at this time. On PT/OT therapy. Patient ambulatory with a walker and independent for most adls. Pt. in a process to be discharged in the afternoon. Needs attended, skin kept clean and dry, made comfortable and will continue with care.
[2020-03-12] MEDS: LIDOCAINE 5% PATCH TD SCH (13:15)
[2020-03-12] MEDS: OXYCODONE/APAP 5-325 MG TABLET PO PRN (13:15)
--- NOTE | 2020-03-12 16:47 | NUR ---
Discharge note: Patient in stable condition, vital signs stable for patient. All discharge teaching provided to patient. Medication ordered reviewed and prescriptions done by Denita Vo. Prescriptions faxed to pt.'s preferred pharmacy. Discharge papers signed by patient. Belongings verified and retuned to patient and inventory list signed by patient. All copies provided to patient. Patient stated satisfied with care and thanked for the care provided. Patient picked up by [facility] via pri[facility]anka assisted by 2 student assistant and left at 14:45pm.
== END 2020-03-12 14:45 | disposition home health service (06) | DRG 377 ==
PROVIDERS: ADMIT Physical Medicine & Rehabilitation Pain Medicine; ATTEND Physical Medicine & Rehabilitation Pain Medicine
DX: K25.4 Chronic or unspecified gastric ulcer with hemorrhage (principal); N17.0 Acute kidney failure with tubular necrosis; E43 Unspecified severe protein-calorie malnutrition; N39.0 Urinary tract infection, site not specified; D62 Acute posthemorrhagic anemia; R53.1 Weakness; D63.8 Anemia in other chronic diseases classified elsewhere; E78.5 Hyperlipidemia, unspecified; F32.9 Major depressive disorder, single episode, unspecified; I10 Essential (primary) hypertension; F41.9 Anxiety disorder, unspecified; S80.02XD Contusion of left knee, subsequent encounter; S22.31XD Fracture of one rib, right side, subsequent encounter for fracture with routine healing; W19.XXXD Unspecified fall, subsequent encounter; M10.9 Gout, unspecified; E11.9 Type 2 diabetes mellitus without complications; K56.41 Fecal impaction; Z85.6 Personal history of leukemia; Z92.21 Personal history of antineoplastic chemotherapy; M19.90 Unspecified osteoarthritis, unspecified site; R26.81 Unsteadiness on feet; Z88.6 Allergy status to analgesic agent; G90.8 Other disorders of autonomic nervous system
CPT/HCPCS: 36415; 73700; 74018; 82378; 83550; 83735; 84100; 84443; 85025; 87086; A4663; J1815; J3301; J3490; Q0162

== ENCOUNTER 2022-12-19 10:33 | Emergency (ER) | payer MEDICARE, OTHER ==
[~2022-12-19] VITALS: Ht 152.4 cm; Wt 59.0 kg
[~2022-12-19 10:33] MED LIST changes: +ACET-2154 PO; -ACET-73 PO; +AMLO-212 PO; +AMLO10TA59 PO; -AMLO10TA7 PO; +CELE200C PO; +ESCI20TA PO; -ESCI20TA37 PO; +ESCI20TA44 PO; +LINA290C PO; +MAG355OR18 PO; +MAGN400O6 PO; +ONDA-104 IV; -PANT40TA4 PO; +PANT40TA49 IVP; +PANT40TA49 PO; +ROSU5TAB13 PO
--- NOTE | 2022-12-19 10:41 | NUR ---
Pt seen by MD for bedside eval. Safety measures in place. Will continue to monitor.
[2022-12-19 10:55] LABS: MEAN CORPUSCULAR HEMOGLOBIN 34.5 uug (24.7-32.8); MEAN CORPUSCULAR VOLUME 100.3 fL (75.5-95.3); PLATELET COUNT (AUTO) 232 K/uL (179-408)
[2022-12-19 11:47] LABS: ALANINE AMINOTRANSFERASE 21 U/L (14-59); ALKALINE PHOSPHATASE 71 U/L (50-136); ASPARTATE AMINOTRANSFERASE 29 U/L (15-37); BILIRUBIN,DIRECT 0.2 mg/dL (0.0-0.2); BILIRUBIN,TOTAL 0.5 mg/dL (0.2-1.0); CARBON DIOXIDE 28 mmol/L (21-32); CHLORIDE 98 mmol/L (98-107); CREATININE 1.2 mg/dL (0.6-1.3); GLUCOSE 118 mg/dL (74-106); POTASSIUM 3.4 mmol/L (3.5-5.1); TOTAL PROTEIN, SERUM 7.2 g/dL (6.4-8.2); UREA NITROGEN, BLOOD 20 mg/dL (7-18)
[2022-12-19] MEDS ORDERED: MORPHINE SULFATE 2 MG/1 ML DISP.SYRIN IV ONE (12:00)
--- NOTE | 2022-12-19 12:05 | NUR ---
Sent UA to lab.
[2022-12-19 12:15] LABS: *BILIRUBIN,URIN NEGATIVE (NEGATIVE); *BLOOD, URINE 2+ (NEGATIVE); *CLARITY,URINE CLEAR (CLEAR); *COLOR,URINE YELLOW (YELLOW); *KETONES,URINE NEGATIVE (NEGATIVE); *UROBILINOGEN,URINE 0.2 E.U./dl (NORMAL); LEUKOCYTE ESTERASE ,URINE TRACE (NEGATIVE); NITRITE, URINE NEGATIVE (NEGATIVE); PH,URINE 5.5 (5.0-8.0); UGLUCOSE NEGATIVE (NEGATIVE)
[2022-12-19] MEDS ORDERED: IV NORMAL SALINE 1000 ML BAG IV ONE ×2 (12:15→14:15)
[2022-12-19] MEDS ORDERED: MORPHINE SULFATE 2 MG/1 ML DISP.SYRIN ONE (13:03)
[2022-12-19] MEDS ORDERED: ONDANSETRON 4 MG/2 ML VIAL IV ONE (13:15)
[2022-12-19] MEDS ORDERED: ONDANSETRON 4 MG/2 ML VIAL ONE (13:16)
[2022-12-19] MEDS ORDERED: HYDR-3972 PO (14:08)
--- NOTE | 2022-12-19 14:32 | NUR ---
Contacted [facility] to pick pt up. Ranjit stated [facility] will pick pt up in 40-50 min.
[2022-12-19 15:50] LABS: BACTERIA,URINE MODERATE /HPF (NONE SEEN); SQUAMOUS EPITHELIAL CELL,UR MODERATE /HPF (NONE SEEN); WBC,URINE 0-3 /HPF (0-3)
--- NOTE | 2022-12-19 16:14 | NUR ---
Still waiting for patient to be picked up. Safety measures in place. Will continue to monitor.
--- NOTE | 2022-12-19 16:47 | NUR ---
Patient discharged to home in stable condition. Written and verbal after care instructions given. Pt picked up by [facility] (Andrew PAYTON). Patient verbalizes understanding of instructions. Stressed follow up or return to ER for worsening s/s.
[2022-12-19 16:51] VITALS: BP 147/63
== END 2022-12-19 16:51 | disposition home or self-care (01) ==
LOC: ER 10:33
DX: G58.8 Other specified mononeuropathies (principal); K13.79 Other lesions of oral mucosa; I10 Essential (primary) hypertension; M10.9 Gout, unspecified; R07.89 Other chest pain; Z88.6 Allergy status to analgesic agent; Z79.899 Other long term (current) drug therapy
CPT/HCPCS: 99285; 96374; 71045; 96361; 96375; 80076; 80048; 81001; 85025; 36415; 93005; 87040; J2405; J2270; J7040 ×2; A4663

== ENCOUNTER 2025-03-11 11:44 | Emergency (ER) | payer MEDICARE, OTHER ==
[~2025-03-11] VITALS: Ht 154.9 cm; Wt 70.3 kg
[~2025-03-11 11:44] MED LIST changes: +HYDR-3972 PO
[2025-03-11 11:52] VITALS: BP 121/59
[2025-03-11] MEDS ORDERED: ONDANSETRON 4 MG/2 ML VIAL ONE (12:10)
[2025-03-11] MEDS ORDERED: MORPHINE SULFATE 4 MG/1 ML DISP.SYRIN ONE (12:11)
[2025-03-11 12:16] LABS: PLATELET COUNT (AUTO) 193 K/uL (179-408); RED BLOOD CELL COUNT(AUTO) 3.47 MIL/uL (3.63-4.92); RED CELL DISTRIBUTION WIDTH 14.2 % (12.3-17.7); WHITE BLOOD COUNT (AUTO) 9.9 K/uL (3.8-11.8)
[2025-03-11 12:24] LABS: CREATININE 1.2 mg/dL (0.6-1.3); SODIUM SERUM 145 mmol/L (136-145); UREA NITROGEN, BLOOD 18 mg/dL (7-18)
[2025-03-11 12:29] LABS: ASPARTATE AMINOTRANSFERASE 6 U/L (15-37); TOTAL PROTEIN, SERUM 6.2 g/dL (6.4-8.2)
[2025-03-11 12:29] LABS: ABG BASE EXCESS 1.3 mmol/L (-2.0-3.0); ABG HCO3 25.5 mmol/L (21.0-28.0); ABG PCO2 38.7 mmHg (32.0-45.0); ABG PH 7.436 (7.350-7.450); ABG PO2 66.0 mmHg (83.0-108.0); ABG SITE RIGHT RADIAL; ABG TOTAL HEMOGLOBIN 11.0 G/dL (12.0-16.0); AaDO2 93.7 mmHg; FIO2 21.0 %; FLOW, BLOOD GAS 0.00 L/min (0.00-30.00)
[2025-03-11] MEDS: IV NORMAL SALINE 1000 ML BAG IV ONE (12:45)
[2025-03-11] MEDS: MORPHINE SULFATE 2 MG/1 ML DISP.SYRIN IV ONE (12:46)
[2025-03-11] MEDS: ONDANSETRON 4 MG/2 ML VIAL IV ONE (12:46)
[2025-03-11] MEDS ORDERED: IV NORMAL SALINE 250 ML IV ONE (13:02)
[2025-03-11] MEDS ORDERED: IOHEXOL 300MG/ML 100 ML INFUS..BTL ONE (13:02)
[2025-03-11] MEDS ORDERED: SWABABLE VALVE TRANSFER SET EA MC ONE (13:02)
[2025-03-11] MEDS ORDERED: NABU-140 PO (15:26)
[2025-03-11 15:39] LABS: *BILIRUBIN,URIN NEGATIVE (NEGATIVE); *BLOOD, URINE 1+ (NEGATIVE); *CLARITY,URINE CLEAR (CLEAR); *COLOR,URINE YELLOW (YELLOW); *KETONES,URINE NEGATIVE (NEGATIVE); *PROTEIN,URINE NEGATIVE (NEGATIVE); *UROBILINOGEN,URINE 0.2 E.U./dl (NORMAL); LEUKOCYTE ESTERASE ,URINE NEGATIVE (NEGATIVE); NITRITE, URINE NEGATIVE (NEGATIVE); UGLUCOSE 1+ (NEGATIVE)
[2025-03-11 15:49] VITALS: BP 136/65; TEMP 97.8; O2SAT 94
[2025-03-11 15:52] LABS: SQUAMOUS EPITHELIAL CELL,UR MODERATE /HPF (NONE SEEN)
== END 2025-03-11 15:50 | disposition home or self-care (01) ==
LOC: ER 11:44
DX: S20.211A Contusion of right front wall of thorax, initial encounter (principal); M54.50 Low back pain, unspecified; F41.9 Anxiety disorder, unspecified; G89.29 Other chronic pain; I10 Essential (primary) hypertension; R06.02 Shortness of breath; M10.9 Gout, unspecified; Z79.1 Long term (current) use of non-steroidal anti-inflammatories (NSAID); Z79.899 Other long term (current) drug therapy; Z85.3 Personal history of malignant neoplasm of breast; Z88.6 Allergy status to analgesic agent; W18.39XA Other fall on same level, initial encounter; Y93.89 Activity, other specified; Y92.89 Other specified places as the place of occurrence of the external cause; Y99.8 Other external cause status
CPT/HCPCS: 99285; 96374; 71260; 71045; 96361; 96375; 80076; 80048; 81001; 83880; 85025; 85379; 85730; 86850; 86900; 86901; 84484 ×2; 36415; 93005; 36600; J2405; Q9967; J2270; J7040; A4606; A4663